=== PATIENT | male | born 1955 | race Caucasian/White ===

== ENCOUNTER 2018-11-03 12:33 | Inpatient (IN) | payer MEDICARE, MEDICAID ==
[~2018-11-03] VITALS: Ht 185.4 cm; Wt 107.9 kg
[2018-11-03 15:37] VITALS: BP 124/80
[2018-11-03] MEDS ORDERED: PLEASE ENTER ALLERGIES MC SCH ×2 (16:57→17:30)
[2018-11-03] MEDS ORDERED: ONDANSETRON ODT 4 MG PO PRN (17:00)
[2018-11-03] MEDS ORDERED: VANCOMYCIN PER PHARMACY MC PRN (17:00)
[2018-11-03] MEDS ORDERED: DOCUSATE 100 MG CAPSULE PO PRN (17:00)
[2018-11-03] MEDS ORDERED: ACETAMINOPHEN 325 MG TABLET PO PRN (17:00)
[2018-11-03] MEDS ORDERED: ONDANSETRON 2MG/ML, 2ML IVPush PRN (17:00)
[2018-11-03] MEDS ORDERED: DIVA-61 PO (17:20)
[2018-11-03] MEDS ORDERED: DULO30CA2 PO (17:20)
[2018-11-03] MEDS ORDERED: INSU100C SQ-INSULIN (17:20)
[2018-11-03] MEDS ORDERED: CARV3.1212 PO (17:20)
[2018-11-03] MEDS ORDERED: ATOR-2 PO (17:20)
[2018-11-03] MEDS ORDERED: RIVA15TA PO (17:20)
[2018-11-03] MEDS ORDERED: INSU100V8 SQ (17:20)
[2018-11-03] MEDS ORDERED: PHARMACOKINETIC MONITORING MC PRN (17:30)
[2018-11-03] MEDS: NICOTINE 7 MG/24 HR PATCH.TD24 TD SCH (18:22)
[2018-11-03] MEDS: HEPARIN 5,000 UNITS/ML, 1ML SQ SCH (18:22)
[2018-11-03] MEDS: PIPERACILLIN/TAZO/PMX 3.375GM 50 ML IV SCH (18:22)
[2018-11-03] MEDS ORDERED: VANCOMYCIN 2,000 MG in SODIUM CHLORIDE 0.9% 500 ML IV ONE (18:30)
[2018-11-03 18:46] LABS: CREATININE 1.05 mg/dL (0.7-1.3)
[2018-11-03] MEDS: INSULIN LISPRO 100 UNITS/ML, PEN SQ-INSULIN SCH ×2 (18:52→21:00)
[2018-11-03] MEDS: OXYcodone IR 5MG TABLET PO PRN (18:58)
[2018-11-03 19:58] VITALS: BP 144/90
[2018-11-03] MEDS: MORPHINE SULFATE 4 MG/ML, 1ML IVPush PRN (23:36)
[2018-11-04] MEDS: OXYcodone IR 5MG TABLET PO PRN ×4 (00:14→19:35)
[2018-11-04] MEDS: PIPERACILLIN/TAZO/PMX 3.375GM 50 ML IV SCH ×5 (00:15→23:29)
[2018-11-04] MEDS: INSULIN GLARGINE 100 UNITS/ML, PEN SQ-INSULIN SCH ×2 (00:55→21:00)
[2018-11-04] MEDS: HEPARIN 5,000 UNITS/ML, 1ML SQ SCH ×2 (01:55→09:12)
[2018-11-04 02:11] VITALS: BP 129/78
[2018-11-04 05:51] LABS: BASOPHILS # (AUTO) 0.07 x10^3/uL (0-0.1); BASOPHILS % (AUTO) 1 % (0-1); EOSINOPHILS # (AUTO) 0.24 x10^3/uL (0-0.4); EOSINOPHILS % (AUTO) 3 % (1-7); LYMPHOCYTES # (AUTO) 2.06 x10^3/uL (1-3.4); LYMPHOCYTES % (AUTO) 26 % (22-44); MD NO; MEAN CORPUSCULAR HEMOGLOBIN 27.7 pg (27.5-34.5); MEAN CORPUSCULAR HGB CONC 33.2 g/dL (33.2-36.2); MEAN CORPUSCULAR VOLUME 83.3 fL (81-97); MEAN PLATELET VOLUME 9.2 fL (7.4-10.4); MONOCYTES # (AUTO) 0.66 x10^3/uL (0.2-0.8); MONOCYTES % (AUTO) 8 % (2-9); NEUTROPHILS % (AUTO) 62 % (42-75); PLATELET COUNT 181 x10^3/uL (130-400); RED BLOOD COUNT 5.33 x10^6/uL (4.38-5.82); RED CELL DISTRIBUTION WIDTH 15.4 % (9.4-14.8)
[2018-11-04 06:02] LABS: ANION GAP 9 mmol/L (5-15); CALCIUM 8.4 mg/dL (8.5-10.1); CHLORIDE 106 mmol/L (98-107)
[2018-11-04 06:16] LABS: ALANINE AMINOTRANSFERASE 98 U/L (12-78); ALKALINE PHOSPHATASE 209 U/L (45-117); BILIRUBIN,TOTAL 1.6 mg/dL (0.2-1.0); CHOL/HDL RATIO 3.3; CHOLESTEROL, TOTAL 83 mg/dL (140-239); CREATININE 0.94 mg/dL (0.7-1.3); HDL CHOL % 30 % (26-37); HDL CHOLESTEROL (DIRECT) 25 mg/dL (40-60); LDL CHOLESTEROL,CALCULATED 44 mg/dL (54-169); LDL/HDL RATIO 1.8 (0.5-3.0); TOTAL PROTEIN 6.4 g/dL (6.4-8.2); TRIGLYCERIDES 70 mg/dL (50-200); VLDL CHOLESTEROL 14 mg/dL (0-25)
[2018-11-04 06:54] LABS: HCT (SEDRATE) 44.5 % (39.2-51.8)
[2018-11-04] MEDS: INSULIN LISPRO 100 UNITS/ML, PEN SQ-INSULIN SCH ×4 (07:00→20:59)
[2018-11-04 07:36] VITALS: BP 128/84
[2018-11-04] MEDS: DULOXETINE 30 MG CAPSULE.DR PO SCH ×2 (09:12→20:59)
[2018-11-04] MEDS: DIVALPROEX 500 MG TAB.ER.24H PO SCH (09:13)
[2018-11-04] MEDS: CARVEDILOL 3.125 MG TABLET PO SCH ×2 (09:13→20:59)
[2018-11-04] MEDS ORDERED: FUROSEMIDE 20 MG/2 ML IV ONE (10:00)
[2018-11-04] MEDS: VANCOMYCIN 2,000 MG in SODIUM CHLORIDE 0.9% 500 ML IV SCH (12:48)
[2018-11-04 13:03] VITALS: BP 134/85
[2018-11-04] MEDS: MORPHINE SULFATE 4 MG/ML, 1ML IVPush PRN ×2 (15:02→23:33)
[2018-11-04] MEDS: RIVAROXABAN 10 MG TABLET PO SCH (17:11)
[2018-11-04] MEDS: NICOTINE 7 MG/24 HR PATCH.TD24 TD SCH (17:11)
[2018-11-04 20:00] VITALS: BP 130/84
[2018-11-04] MEDS: ATORVASTATIN 80 MG TABLET PO SCH (20:59)
[2018-11-04] MEDS ORDERED: TEMPLATE NON-FORMULARY MED. (Rivaroxaban** (Xarelto**) 15 MG) PO SCH (21:00)
[2018-11-05 01:38] VITALS: BP 109/70
[2018-11-05] MEDS: OXYcodone IR 5MG TABLET PO PRN ×3 (03:20→19:31)
[2018-11-05] MEDS: PIPERACILLIN/TAZO/PMX 3.375GM 50 ML IV SCH ×4 (05:33→19:31)
[2018-11-05] MEDS: VANCOMYCIN 2,000 MG in SODIUM CHLORIDE 0.9% 500 ML IV SCH ×2 (06:11→23:38)
[2018-11-05] MEDS: INSULIN LISPRO 100 UNITS/ML, PEN SQ-INSULIN SCH ×4 (07:00→20:30)
[2018-11-05 07:03] VITALS: BP 109/73
[2018-11-05] MEDS: DIVALPROEX 500 MG TAB.ER.24H PO SCH (08:27)
[2018-11-05] MEDS: DULOXETINE 30 MG CAPSULE.DR PO SCH ×2 (08:27→20:32)
[2018-11-05] MEDS: MORPHINE SULFATE 4 MG/ML, 1ML IVPush PRN ×3 (08:28→22:56)
[2018-11-05] MEDS: CARVEDILOL 3.125 MG TABLET PO SCH ×2 (08:28→20:32)
[2018-11-05 14:09] VITALS: BP 128/84
[2018-11-05 15:09] LABS: ALANINE AMINOTRANSFERASE 80 U/L (12-78); ALBUMIN 2.8 g/dL (3.4-5.0); ANION GAP 8 mmol/L (5-15); CALCIUM 8.3 mg/dL (8.5-10.1); CHLORIDE 103 mmol/L (98-107)
[2018-11-05 15:12] LABS: ALKALINE PHOSPHATASE 193 U/L (45-117); BILIRUBIN,TOTAL 1.7 mg/dL (0.2-1.0); CREATININE 1.09 mg/dL (0.7-1.3); TOTAL PROTEIN 6.1 g/dL (6.4-8.2)
[2018-11-05] MEDS: RIVAROXABAN 10 MG TABLET PO SCH (16:29)
[2018-11-05] MEDS: NICOTINE 7 MG/24 HR PATCH.TD24 TD SCH (16:29)
[2018-11-05] MEDS: INSULIN GLARGINE 100 UNITS/ML, PEN SQ-INSULIN SCH (20:31)
[2018-11-05] MEDS: ATORVASTATIN 80 MG TABLET PO SCH (20:32)
[2018-11-05 20:35] VITALS: BP 130/88
[2018-11-06] MEDS: PIPERACILLIN/TAZO/PMX 3.375GM 50 ML IV SCH ×2 (02:00→07:56)
[2018-11-06 03:22] VITALS: BP 141/86
[2018-11-06] MEDS: OXYcodone IR 5MG TABLET PO PRN ×3 (04:25→16:47)
[2018-11-06 05:31] LABS: ALBUMIN 2.9 g/dL (3.4-5.0); ANION GAP 7 mmol/L (5-15); CALCIUM 8.4 mg/dL (8.5-10.1); CHLORIDE 104 mmol/L (98-107)
[2018-11-06 05:36] LABS: ALANINE AMINOTRANSFERASE 85 U/L (12-78); ALKALINE PHOSPHATASE 195 U/L (45-117); CREATININE 0.94 mg/dL (0.7-1.3); TOTAL PROTEIN 6.5 g/dL (6.4-8.2)
[2018-11-06] MEDS: INSULIN LISPRO 100 UNITS/ML, PEN SQ-INSULIN SCH ×4 (06:39→21:01)
[2018-11-06] MEDS: MORPHINE SULFATE 4 MG/ML, 1ML IVPush PRN ×2 (06:44→18:35)
[2018-11-06 07:42] VITALS: BP 142/86
[2018-11-06] MEDS: DULOXETINE 30 MG CAPSULE.DR PO SCH ×2 (07:57→20:59)
[2018-11-06] MEDS: CARVEDILOL 3.125 MG TABLET PO SCH ×2 (07:57→20:59)
[2018-11-06] MEDS: DIVALPROEX 500 MG TAB.ER.24H PO SCH (07:57)
[2018-11-06] MEDS ORDERED: FUROSEMIDE 20 MG TABLET ONE (08:13)
[2018-11-06] MEDS ORDERED: FUROSEMIDE 10 MG/ML ORAL SOL PO SCH (09:00)
[2018-11-06] MEDS ORDERED: FUROSEMIDE 40 MG/4 ML IV ONE (11:00)
[2018-11-06] MEDS ORDERED: CEFAZOLIN 1,000 MG IV SCH (11:00)
[2018-11-06 11:33] VITALS: BP 161/88
[2018-11-06] MEDS: LISINOPRIL 5 MG TABLET PO SCH (11:33)
[2018-11-06] MEDS: CEFAZOLIN PMX 1GM/50ML 50 ML IVPB SCH ×2 (13:56→21:00)
[2018-11-06] MEDS: RIVAROXABAN 10 MG TABLET PO SCH (16:47)
[2018-11-06] MEDS: NICOTINE 7 MG/24 HR PATCH.TD24 TD SCH (16:47)
[2018-11-06 18:56] VITALS: BP 127/71
[2018-11-06] MEDS: ATORVASTATIN 80 MG TABLET PO SCH (20:59)
[2018-11-06] MEDS: INSULIN GLARGINE 100 UNITS/ML, PEN SQ-INSULIN SCH (21:01)
[2018-11-07] MEDS: OXYcodone IR 5MG TABLET PO PRN ×3 (00:06→16:37)
[2018-11-07 02:00] VITALS: BP 129/83
[2018-11-07] MEDS: MORPHINE SULFATE 4 MG/ML, 1ML IVPush PRN ×4 (02:02→19:59)
[2018-11-07] MEDS: CEFAZOLIN PMX 1GM/50ML 50 ML IVPB SCH ×3 (04:22→20:02)
[2018-11-07 05:27] LABS: BASOPHILS # (AUTO) 0.03 x10^3/uL (0-0.1); BASOPHILS % (AUTO) 1 % (0-1); EOSINOPHILS # (AUTO) 0.17 x10^3/uL (0-0.4); EOSINOPHILS % (AUTO) 3 % (1-7); LYMPHOCYTES # (AUTO) 2.21 x10^3/uL (1-3.4); LYMPHOCYTES % (AUTO) 32 % (22-44); MD NO; MEAN CORPUSCULAR HEMOGLOBIN 27.8 pg (27.5-34.5); MEAN CORPUSCULAR HGB CONC 33.1 g/dL (33.2-36.2); MEAN PLATELET VOLUME 9.2 fL (7.4-10.4); MONOCYTES % (AUTO) 7 % (2-9); NEUTROPHILS # (AUTO) 4.03 x10^3/uL (1.8-6.8); NEUTROPHILS % (AUTO) 58 % (42-75); PLATELET COUNT 154 x10^3/uL (130-400); RED BLOOD COUNT 5.22 x10^6/uL (4.38-5.82); RED CELL DISTRIBUTION WIDTH 15.2 % (9.4-14.8)
[2018-11-07 05:28] LABS: ANION GAP 5 mmol/L (5-15); CALCIUM 8.6 mg/dL (8.5-10.1); CHLORIDE 103 mmol/L (98-107)
[2018-11-07 05:32] LABS: ALANINE AMINOTRANSFERASE 81 U/L (12-78); ALKALINE PHOSPHATASE 192 U/L (45-117); BILIRUBIN,TOTAL 1.6 mg/dL (0.2-1.0); CREATININE 1.08 mg/dL (0.7-1.3); TOTAL PROTEIN 6.5 g/dL (6.4-8.2)
[2018-11-07 07:05] VITALS: BP 125/80
[2018-11-07] MEDS: LISINOPRIL 5 MG TABLET PO SCH (08:07)
[2018-11-07] MEDS: DULOXETINE 30 MG CAPSULE.DR PO SCH ×2 (08:07→20:02)
[2018-11-07] MEDS: CARVEDILOL 3.125 MG TABLET PO SCH ×2 (08:07→20:02)
[2018-11-07] MEDS: DIVALPROEX 500 MG TAB.ER.24H PO SCH (08:07)
[2018-11-07] MEDS: INSULIN LISPRO 100 UNITS/ML, PEN SQ-INSULIN SCH ×4 (08:13→20:00)
[2018-11-07 14:21] VITALS: BP 111/74
[2018-11-07] MEDS: RIVAROXABAN 10 MG TABLET PO SCH (16:37)
[2018-11-07] MEDS: NICOTINE 7 MG/24 HR PATCH.TD24 TD SCH (16:37)
[2018-11-07 19:52] VITALS: BP 122/74
[2018-11-07] MEDS: INSULIN GLARGINE 100 UNITS/ML, PEN SQ-INSULIN SCH (20:00)
[2018-11-07] MEDS: FUROSEMIDE 40 MG TABLET PO SCH (20:02)
[2018-11-07] MEDS: ATORVASTATIN 80 MG TABLET PO SCH (20:02)
[2018-11-08 00:36] VITALS: BP 120/85
[2018-11-08] MEDS: MORPHINE SULFATE 4 MG/ML, 1ML IVPush PRN ×3 (04:28→20:56)
[2018-11-08] MEDS: CEFAZOLIN PMX 1GM/50ML 50 ML IVPB SCH ×3 (04:28→20:54)
[2018-11-08 05:51] LABS: ALANINE AMINOTRANSFERASE 77 U/L (12-78); ALBUMIN 3.1 g/dL (3.4-5.0); ANION GAP 7 mmol/L (5-15); CALCIUM 8.2 mg/dL (8.5-10.1); CHLORIDE 103 mmol/L (98-107); CREATININE 1.13 mg/dL (0.7-1.3)
[2018-11-08 05:54] LABS: ALKALINE PHOSPHATASE 195 U/L (45-117); BILIRUBIN,TOTAL 1.4 mg/dL (0.2-1.0); TOTAL PROTEIN 6.5 g/dL (6.4-8.2)
[2018-11-08] MEDS: INSULIN LISPRO 100 UNITS/ML, PEN SQ-INSULIN SCH ×4 (07:00→20:56)
[2018-11-08 07:50] VITALS: BP 115/76
[2018-11-08] MEDS: DULOXETINE 30 MG CAPSULE.DR PO SCH ×2 (08:59→20:54)
[2018-11-08] MEDS: DIVALPROEX 500 MG TAB.ER.24H PO SCH (08:59)
[2018-11-08] MEDS: CARVEDILOL 3.125 MG TABLET PO SCH (08:59)
[2018-11-08] MEDS: LISINOPRIL 5 MG TABLET PO SCH (09:00)
[2018-11-08] MEDS: FUROSEMIDE 40 MG TABLET PO SCH ×2 (09:00→20:56)
[2018-11-08] MEDS: ACETAMINOPHEN 325 MG TABLET PO SCH ×3 (10:43→23:01)
[2018-11-08 14:00] VITALS: BP 137/81
[2018-11-08] MEDS: OXYcodone IR 5MG TABLET PO PRN ×2 (15:09→23:01)
[2018-11-08] MEDS: NICOTINE 7 MG/24 HR PATCH.TD24 TD SCH (16:42)
[2018-11-08] MEDS: RIVAROXABAN 10 MG TABLET PO SCH (16:42)
[2018-11-08 18:56] VITALS: BP 123/72
[2018-11-08] MEDS: CARVEDILOL 6.25 MG TABLET PO SCH (20:54)
[2018-11-08] MEDS: ATORVASTATIN 80 MG TABLET PO SCH (20:54)
[2018-11-08] MEDS: INSULIN GLARGINE 100 UNITS/ML, PEN SQ-INSULIN SCH (20:56)
[2018-11-09 01:22] VITALS: BP 103/67
[2018-11-09] MEDS: MORPHINE SULFATE 4 MG/ML, 1ML IVPush PRN ×4 (03:11→20:32)
[2018-11-09] MEDS: ACETAMINOPHEN 325 MG TABLET PO SCH ×4 (04:49→22:41)
[2018-11-09] MEDS: CEFAZOLIN PMX 1GM/50ML 50 ML IVPB SCH ×3 (04:49→20:30)
[2018-11-09 07:21] VITALS: BP 112/72
[2018-11-09] MEDS: INSULIN LISPRO 100 UNITS/ML, PEN SQ-INSULIN SCH ×4 (08:48→20:31)
[2018-11-09] MEDS: LISINOPRIL 5 MG TABLET PO SCH (08:59)
[2018-11-09] MEDS: DIVALPROEX 500 MG TAB.ER.24H PO SCH (08:59)
[2018-11-09] MEDS: FUROSEMIDE 40 MG TABLET PO SCH ×2 (09:00→20:30)
[2018-11-09] MEDS: CARVEDILOL 6.25 MG TABLET PO SCH ×2 (09:00→20:30)
[2018-11-09] MEDS: DULOXETINE 30 MG CAPSULE.DR PO SCH ×2 (09:02→20:30)
[2018-11-09] MEDS: OXYcodone IR 5MG TABLET PO PRN ×3 (09:43→23:45)
[2018-11-09 12:05] VITALS: BP 115/79
[2018-11-09] MEDS: RIVAROXABAN 10 MG TABLET PO SCH (16:35)
[2018-11-09] MEDS: NICOTINE 7 MG/24 HR PATCH.TD24 TD SCH (16:37)
[2018-11-09 19:21] VITALS: BP 111/75
[2018-11-09] MEDS: ATORVASTATIN 80 MG TABLET PO SCH (20:30)
[2018-11-09] MEDS: INSULIN GLARGINE 100 UNITS/ML, PEN SQ-INSULIN SCH (20:32)
[2018-11-10 00:22] VITALS: BP 113/73
[2018-11-10] MEDS: ACETAMINOPHEN 325 MG TABLET PO SCH ×2 (04:07→09:44)
[2018-11-10] MEDS: CEFAZOLIN PMX 1GM/50ML 50 ML IVPB SCH (04:07)
[2018-11-10] MEDS: OXYcodone IR 5MG TABLET PO PRN (05:59)
[2018-11-10 06:45] VITALS: BP 109/72
[2018-11-10] MEDS: INSULIN LISPRO 100 UNITS/ML, PEN SQ-INSULIN SCH ×2 (07:47→11:58)
[2018-11-10] MEDS ORDERED: AMOXICILLIN/CLAV 875-125MG TABLET PO SCH (08:00)
[2018-11-10] MEDS ORDERED: CARVEDILOL 12.5 MG TABLET PO SCH (09:00)
[2018-11-10] MEDS ORDERED: FUROSEMIDE 20 MG TABLET PO SCH (09:00)
[2018-11-10] MEDS: MORPHINE SULFATE 4 MG/ML, 1ML IVPush PRN (09:44)
[2018-11-10] MEDS: DULOXETINE 30 MG CAPSULE.DR PO SCH (09:44)
[2018-11-10] MEDS: DIVALPROEX 500 MG TAB.ER.24H PO SCH (09:44)
[2018-11-10] MEDS: LISINOPRIL 5 MG TABLET PO SCH (09:44)
[2018-11-10] MEDS ORDERED: FURO20TA3 PO (10:12)
[2018-11-10] MEDS ORDERED: CARV12.543 PO (10:12)
[2018-11-10] MEDS ORDERED: AMOX1TAB12 PO (10:12)
[2018-11-10] MEDS ORDERED: LISI5TAB7 PO (10:12)
[2018-11-10] MEDS ORDERED: SPIR25TA5 PO (12:06)
== END 2018-11-10 14:42 | disposition home or self-care (01) | DRG 564 ==
LOC: 4NOR 15:04 → 4EST 11-06 12:13 → 4WST 11-06 20:31 → DCLOUNGE 11-10 14:22
PROVIDERS: ADMIT Internal Medicine; ATTEND Internal Medicine
DX: T87.43 Infection of amputation stump, right lower extremity (principal); I50.21 Acute systolic (congestive) heart failure; L03.115 Cellulitis of right lower limb; I35.0 Nonrheumatic aortic (valve) stenosis; Y83.8 Other surgical procedures as the cause of abnormal reaction of the patient, or of later complication, without mention of misadventure at the time of the procedure; K74.60 Unspecified cirrhosis of liver; B19.20 Unspecified viral hepatitis C without hepatic coma; E66.9 Obesity, unspecified; G89.4 Chronic pain syndrome; I11.0 Hypertensive heart disease with heart failure; F32.9 Major depressive disorder, single episode, unspecified; E11.40 Type 2 diabetes mellitus with diabetic neuropathy, unspecified; E11.51 Type 2 diabetes mellitus with diabetic peripheral angiopathy without gangrene; E11.65 Type 2 diabetes mellitus with hyperglycemia; E78.5 Hyperlipidemia, unspecified; F17.210 Nicotine dependence, cigarettes, uncomplicated; L03.011 Cellulitis of right finger; Y83.5 Amputation of limb(s) as the cause of abnormal reaction of the patient, or of later complication, without mention of misadventure at the time of the procedure; Z79.01 Long term (current) use of anticoagulants; Z89.511 Acquired absence of right leg below knee; Z89.612 Acquired absence of left leg above knee; Z86.718 Personal history of other venous thrombosis and embolism; Z79.4 Long term (current) use of insulin; Z82.49 Family history of ischemic heart disease and other diseases of the circulatory system; Z83.3 Family history of diabetes mellitus; Z86.79 Personal history of other diseases of the circulatory system
CPT/HCPCS: 36415; 71045; 76700; 80053; 80061; 80074; 82565; 82962; 83036; 83880; 84443; 84520; 85025; 85651; 86140; 87521; 93306; G0378; J0690; J1644; J1940; J2405; J2543; J3370; J1815; J7040

== ENCOUNTER 2020-04-29 02:25 | Inpatient (IN) | payer MEDICARE, MEDICAID ==
[~2020-04-29] VITALS: Ht 185.4 cm; Wt 109.0 kg
[~2020-04-29 02:25] MED LIST: AMOX1TAB12 PO; ATOR-2 PO; CARV12.543 PO; CARV3.1212 PO; DIVA-61 PO; DULO30CA2 PO; FURO20TA3 PO; INSU100C SQ-INSULIN; INSU100V8 SQ; LISI5TAB7 PO; RIVA15TA PO; SPIR25TA5 PO
--- NOTE | 2020-04-29 02:47 | NUR ---
THIS IS A 65Y M ROMAN BARBA PT PRESENTED THERE W/ INC R LOWER EXTREM PAIN X2 DAYS. PT HAS KNOWN INFECTION IN STUMP AND HAS WOUND VAC. US FOUND OCCULSION OF FEMORAL ARTERY WITH MINIMAL BLOOD FLOW. PT ARRIVES IN STABLE CONDITION ON 2 L NC, VSS, PT CONNECTED TO ALL MONITORING.
--- NOTE | 2020-04-29 02:55 | NUR ---
LAB AT BEDSIDE FOR DRAW
--- NOTE | 2020-04-29 02:55 | NUR ---
PT OFFERED PAIN MEDICATION, PT STS HE WANTS TO HOLD OFF A LITTLE LONGER HE HAD SOME ON THE FLIGHT OVER
[2020-04-29] MEDS ORDERED: SODIUM CHLORIDE FLUSH 10ML SYR IVF ONE (03:00)
[2020-04-29] MEDS ORDERED: SODIUM CHLORIDE 0.9% 1,000 ML IV ONE (03:09)
[2020-04-29 03:14] LABS: BASOPHILS # (AUTO) 0.05 x10^3/uL (0-0.1); BASOPHILS % (AUTO) 1 % (0-1); EOSINOPHILS # (AUTO) 0.23 x10^3/uL (0-0.4); EOSINOPHILS % (AUTO) 3 % (1-7); LYMPHOCYTES # (AUTO) 1.59 x10^3/uL (1-3.4); LYMPHOCYTES % (AUTO) 18 % (22-44); MD NO; MEAN CORPUSCULAR HEMOGLOBIN 27.1 pg (27.5-34.5); MEAN CORPUSCULAR HGB CONC 32.2 g/dL (33.2-36.2); MEAN CORPUSCULAR VOLUME 84.1 fL (81-97); MEAN PLATELET VOLUME 8.8 fL (7.4-10.4); MONOCYTES # (AUTO) 0.62 x10^3/uL (0.2-0.8); MONOCYTES % (AUTO) 7 % (2-9); NEUTROPHILS # (AUTO) 6.38 x10^3/uL (1.8-6.8); NEUTROPHILS % (AUTO) 72 % (42-75); PLATELET COUNT 153 x10^3/uL (130-400); RED CELL DISTRIBUTION WIDTH 17.4 % (9.4-14.8)
[2020-04-29 03:21] LABS: INTERNATIONAL NORMALIZED RATIO 3.11 (0.93-1.1); PROTHROMBIN TIME 33.3 Seconds (9.6-11.5)
[2020-04-29 03:24] LABS: ALANINE AMINOTRANSFERASE 87 U/L (12-78); ALBUMIN 2.9 g/dL (3.4-5.0); ANION GAP 4 mmol/L (5-15); CALCIUM 8.5 mg/dL (8.5-10.1); CHLORIDE 103 mmol/L (98-107); CREATININE 0.89 mg/dL (0.7-1.3)
--- NOTE | 2020-04-29 03:25 | NUR ---
LAB AT BEDSIDE FOR SECOND SET OF CULTURES PRIOR TO ABX
[2020-04-29 03:26] LABS: ALKALINE PHOSPHATASE 320 U/L (45-117); BILIRUBIN,TOTAL 1.2 mg/dL (0.2-1.0); TOTAL PROTEIN 7.3 g/dL (6.4-8.2)
[2020-04-29] MEDS ORDERED: VANCOMYCIN 2,500 MG in SODIUM CHLORIDE 0.9% 500 ML IV ONE (03:30)
[2020-04-29] MEDS ORDERED: VANCOMYCIN PER PHARMACY MC ONE (03:30)
[2020-04-29] MEDS ORDERED: AMPICILLIN/SULBACTAM 3 GM in SODIUM CHLORIDE 0.9% 100 ML IV ONE (03:30)
--- NOTE | 2020-04-29 03:38 | NUR ---
LAB UNABLE TO OBTAIN 2ND SET OF CULTURES, SENDING ANOTHER CORPORATE SERVICES MANAGER AT THIS TIME
[2020-04-29] MEDS ORDERED: MORPHINE SULFATE 4 MG/ML, 1ML ONE ×2 (03:41→05:37)
[2020-04-29] MEDS: MORPHINE SULFATE 4 MG/ML, 1ML IVPush PRN ×2 (03:44→05:41)
--- NOTE | 2020-04-29 03:45 | NUR ---
2ND SET OF CULTURES COLLECTED, PT MEDICATED FOR PAIN PER MAR AT THIS TIME, IV ABX STARTED NADN
--- NOTE | 2020-04-29 04:12 | NUR ---
SPOKE WITH RN FROM SNF IN [place], RN STS SHE GAVE PT HIS NIGHT MEDS PRIOR TO HIM GOING TO [facility]
[2020-04-29] MEDS ORDERED: DOCUSATE 100 MG CAPSULE PO PRN (04:30)
[2020-04-29] MEDS ORDERED: IBUPROFEN 600 MG TABLET PO PRN (04:30)
[2020-04-29] MEDS ORDERED: VANCOMYCIN PER PHARMACY MC PRN (04:30)
[2020-04-29] MEDS ORDERED: hydrALAzine 20 MG/ML, 1ML IVPush PRN (04:30)
[2020-04-29] MEDS ORDERED: ONDANSETRON 2MG/ML, 2ML IVPush PRN (04:30)
--- NOTE | 2020-04-29 04:30 | NUR ---
VANCO STARTED PER PHARMACY, INFUSING W/OUT DIFFICULTY. PT RESTING ON [facility] AT BEDSIDE TO ADMIT PT, PT ALSO PROVIDED WITH WATER REQ.
--- NOTE | 2020-04-29 05:35 | NUR ---
REPORT TO RENÉ CASTRO ALL QUESTIONS ADDRESSED PT READY FOR TRANSPORT TO ROOM 360 AT THIS TIME
[2020-04-29 05:58] LABS: HCT (SEDRATE) 43.6 % (39.2-51.8)
[2020-04-29 06:15] VITALS: BP 115/75
[2020-04-29] MEDS ORDERED: PHARMACOKINETIC MONITORING MC PRN (06:30)
[2020-04-29] MEDS ORDERED: PHARMACOKINETIC CONSULTATION MC ONE (06:30)
[2020-04-29] MEDS: INSULIN LISPRO 100 UNITS/ML, PEN SQ-INSULIN SCH ×4 (07:00→20:04)
[2020-04-29] MEDS: morphine SULFATE 10 MG/ML, 1ML IVPush PRN ×5 (07:26→23:52)
[2020-04-29] MEDS: CARVEDILOL 12.5 MG TABLET PO SCH ×2 (07:26→20:05)
[2020-04-29] MEDS: LISINOPRIL 5 MG TABLET PO SCH (07:27)
[2020-04-29] MEDS: SPIRONOLACTONE 25 MG TABLET PO SCH (07:27)
[2020-04-29] MEDS: DULOXETINE 30 MG CAPSULE.DR PO SCH ×2 (07:27→20:04)
[2020-04-29] MEDS: FUROSEMIDE 20 MG TABLET PO SCH (07:27)
[2020-04-29 07:32] VITALS: BP 119/82
[2020-04-29] MEDS: PIPERACILLIN/TAZO/PMX 3.375GM 50 ML IV SCH ×3 (09:30→22:25)
[2020-04-29] MEDS: INSULIN GLARGINE 100 UNITS/ML, PEN SQ-INSULIN SCH (09:38)
[2020-04-29] MEDS: KETOROLAC 30 MG/1 ML IM PRN (10:13)
[2020-04-29 12:46] VITALS: BP 104/69
[2020-04-29 19:43] VITALS: BP 123/85
[2020-04-29] MEDS: ATORVASTATIN 80 MG TABLET PO SCH (20:05)
[2020-04-29] MEDS: DIVALPROEX 500 MG TABLET.DR PO SCH (20:05)
[2020-04-29] MEDS: VANCOMYCIN 1,900 MG in SODIUM CHLORIDE 0.9% 250 ML IV SCH (23:12)
[2020-04-30 00:17] VITALS: BP 101/68
[2020-04-30] MEDS: PIPERACILLIN/TAZO/PMX 3.375GM 50 ML IV SCH ×4 (04:19→22:28)
[2020-04-30] MEDS: morphine SULFATE 10 MG/ML, 1ML IVPush PRN ×5 (05:00→20:45)
[2020-04-30 05:25] LABS: ANION GAP 7 mmol/L (5-15); CALCIUM 8.5 mg/dL (8.5-10.1); CHLORIDE 104 mmol/L (98-107); CREATININE 1.11 mg/dL (0.7-1.3)
[2020-04-30 05:30] LABS: BASOPHILS # (AUTO) 0.03 x10^3/uL (0-0.1); BASOPHILS % (AUTO) 1 % (0-1); EOSINOPHILS # (AUTO) 0.26 x10^3/uL (0-0.4); EOSINOPHILS % (AUTO) 5 % (1-7); LYMPHOCYTES # (AUTO) 1.03 x10^3/uL (1-3.4); LYMPHOCYTES % (AUTO) 20 % (22-44); MD NO; MEAN CORPUSCULAR HEMOGLOBIN 27.2 pg (27.5-34.5); MEAN CORPUSCULAR HGB CONC 32.4 g/dL (33.2-36.2); MEAN CORPUSCULAR VOLUME 83.9 fL (81-97); MEAN PLATELET VOLUME 9.2 fL (7.4-10.4); MONOCYTES # (AUTO) 0.38 x10^3/uL (0.2-0.8); MONOCYTES % (AUTO) 7 % (2-9); NEUTROPHILS # (AUTO) 3.42 x10^3/uL (1.8-6.8); NEUTROPHILS % (AUTO) 67 % (42-75); PLATELET COUNT 116 x10^3/uL (130-400); RED BLOOD COUNT 4.84 x10^6/uL (4.38-5.82); RED CELL DISTRIBUTION WIDTH 17.3 % (9.4-14.8)
[2020-04-30 06:58] VITALS: BP 108/72
[2020-04-30] MEDS: INSULIN LISPRO 100 UNITS/ML, PEN SQ-INSULIN SCH ×4 (07:00→20:51)
[2020-04-30] MEDS: FUROSEMIDE 20 MG TABLET PO SCH (08:05)
[2020-04-30] MEDS: DULOXETINE 30 MG CAPSULE.DR PO SCH ×2 (08:05→20:48)
[2020-04-30] MEDS: CARVEDILOL 12.5 MG TABLET PO SCH ×2 (08:06→20:47)
[2020-04-30] MEDS: SPIRONOLACTONE 25 MG TABLET PO SCH (08:06)
[2020-04-30] MEDS: LISINOPRIL 5 MG TABLET PO SCH (08:07)
[2020-04-30 08:10] VITALS: BP 147/78
[2020-04-30] MEDS: INSULIN GLARGINE 100 UNITS/ML, PEN SQ-INSULIN SCH (09:00)
[2020-04-30 13:44] LABS: INTERNATIONAL NORMALIZED RATIO 3.78 (0.93-1.1); PROTHROMBIN TIME 40.6 Seconds (9.6-11.5)
[2020-04-30 14:47] VITALS: BP 102/65
[2020-04-30] MEDS: VANCOMYCIN 1,900 MG in SODIUM CHLORIDE 0.9% 250 ML IV SCH (16:53)
[2020-04-30 18:44] VITALS: BP 109/73
[2020-04-30] MEDS: DIVALPROEX 500 MG TABLET.DR PO SCH (20:47)
[2020-04-30] MEDS: ATORVASTATIN 80 MG TABLET PO SCH (20:48)
[2020-05-01 00:14] VITALS: BP 111/75
[2020-05-01] MEDS: morphine SULFATE 10 MG/ML, 1ML IVPush PRN ×8 (00:27→22:38)
[2020-05-01] MEDS: PIPERACILLIN/TAZO/PMX 3.375GM 50 ML IV SCH ×4 (04:20→22:37)
[2020-05-01] MEDS: INSULIN LISPRO 100 UNITS/ML, PEN SQ-INSULIN SCH ×4 (07:00→20:39)
[2020-05-01 07:09] VITALS: BP 103/70
[2020-05-01 07:31] LABS: BASOPHILS # (AUTO) 0.03 x10^3/uL (0-0.1); BASOPHILS % (AUTO) 1 % (0-1); EOSINOPHILS # (AUTO) 0.18 x10^3/uL (0-0.4); EOSINOPHILS % (AUTO) 4 % (1-7); LYMPHOCYTES # (AUTO) 0.96 x10^3/uL (1-3.4); LYMPHOCYTES % (AUTO) 22 % (22-44); MD NO; MEAN CORPUSCULAR HEMOGLOBIN 27.1 pg (27.5-34.5); MEAN CORPUSCULAR VOLUME 84.6 fL (81-97); MEAN PLATELET VOLUME 9.3 fL (7.4-10.4); MONOCYTES # (AUTO) 0.34 x10^3/uL (0.2-0.8); MONOCYTES % (AUTO) 8 % (2-9); NEUTROPHILS # (AUTO) 2.82 x10^3/uL (1.8-6.8); NEUTROPHILS % (AUTO) 65 % (42-75); PLATELET COUNT 105 x10^3/uL (130-400); RED BLOOD COUNT 4.89 x10^6/uL (4.38-5.82); RED CELL DISTRIBUTION WIDTH 17.4 % (9.4-14.8)
[2020-05-01] MEDS: CARVEDILOL 12.5 MG TABLET PO SCH ×2 (07:38→20:39)
[2020-05-01] MEDS: FUROSEMIDE 20 MG TABLET PO SCH (07:41)
[2020-05-01] MEDS: DULOXETINE 30 MG CAPSULE.DR PO SCH ×2 (07:41→20:38)
[2020-05-01] MEDS: SPIRONOLACTONE 25 MG TABLET PO SCH (07:41)
[2020-05-01] MEDS: LISINOPRIL 5 MG TABLET PO SCH (07:41)
[2020-05-01 07:42] VITALS: BP 176/76
[2020-05-01 07:43] LABS: ALBUMIN 2.6 g/dL (3.4-5.0); ANION GAP 7 mmol/L (5-15); CALCIUM 8.4 mg/dL (8.5-10.1); CHLORIDE 101 mmol/L (98-107); CREATININE 0.95 mg/dL (0.7-1.3)
[2020-05-01] MEDS: INSULIN GLARGINE 100 UNITS/ML, PEN SQ-INSULIN SCH (08:59)
[2020-05-01] MEDS: KETOROLAC 30 MG/1 ML IM PRN ×2 (10:15→20:39)
[2020-05-01] MEDS: VANCOMYCIN 1,900 MG in SODIUM CHLORIDE 0.9% 250 ML IV SCH (11:40)
[2020-05-01 12:42] VITALS: BP 103/67
[2020-05-01 20:20] VITALS: BP 95/60
[2020-05-01] MEDS: ATORVASTATIN 80 MG TABLET PO SCH (20:38)
[2020-05-01] MEDS: ACETAMINOPHEN 325 MG TABLET PO PRN (20:38)
[2020-05-01] MEDS: DIVALPROEX 500 MG TABLET.DR PO SCH (20:39)
[2020-05-02 01:29] VITALS: BP 112/55
[2020-05-02] MEDS: morphine SULFATE 10 MG/ML, 1ML IVPush PRN ×7 (01:44→23:02)
[2020-05-02] MEDS: PIPERACILLIN/TAZO/PMX 3.375GM 50 ML IV SCH ×4 (04:06→23:44)
[2020-05-02] MEDS: INSULIN LISPRO 100 UNITS/ML, PEN SQ-INSULIN SCH ×4 (07:35→21:00)
[2020-05-02] MEDS: SPIRONOLACTONE 25 MG TABLET PO SCH (08:01)
[2020-05-02] MEDS: DULOXETINE 30 MG CAPSULE.DR PO SCH ×2 (08:01→19:35)
[2020-05-02] MEDS: LISINOPRIL 5 MG TABLET PO SCH (08:01)
[2020-05-02] MEDS: FUROSEMIDE 20 MG TABLET PO SCH (08:01)
[2020-05-02] MEDS: CARVEDILOL 12.5 MG TABLET PO SCH ×2 (08:02→19:35)
[2020-05-02] MEDS: INSULIN GLARGINE 100 UNITS/ML, PEN SQ-INSULIN SCH (08:03)
[2020-05-02 08:16] VITALS: BP 100/59
[2020-05-02 13:26] VITALS: BP 107/72
[2020-05-02] MEDS: ACETAMINOPHEN 325 MG TABLET PO PRN (15:22)
[2020-05-02] MEDS: KETOROLAC 30 MG/1 ML IM PRN (15:22)
[2020-05-02] MEDS: VANCOMYCIN 1,900 MG in SODIUM CHLORIDE 0.9% 250 ML IV SCH (16:27)
[2020-05-02 19:21] VITALS: BP 99/67
[2020-05-02] MEDS: DIVALPROEX 500 MG TABLET.DR PO SCH (19:35)
[2020-05-02] MEDS: ATORVASTATIN 80 MG TABLET PO SCH (19:35)
[2020-05-03 00:17] VITALS: BP 96/65
[2020-05-03] MEDS: morphine SULFATE 10 MG/ML, 1ML IVPush PRN ×7 (02:30→23:44)
[2020-05-03] MEDS: PIPERACILLIN/TAZO/PMX 3.375GM 50 ML IV SCH ×3 (05:34→20:55)
[2020-05-03] MEDS: INSULIN LISPRO 100 UNITS/ML, PEN SQ-INSULIN SCH ×4 (07:00→21:17)
[2020-05-03 07:45] VITALS: BP 103/70
[2020-05-03 09:04] VITALS: BP 101/68
[2020-05-03] MEDS: CARVEDILOL 12.5 MG TABLET PO SCH ×2 (09:06→19:54)
[2020-05-03] MEDS: FUROSEMIDE 20 MG TABLET PO SCH (09:06)
[2020-05-03] MEDS: SPIRONOLACTONE 25 MG TABLET PO SCH (09:06)
[2020-05-03] MEDS: DULOXETINE 30 MG CAPSULE.DR PO SCH ×2 (09:06→19:54)
[2020-05-03] MEDS: LISINOPRIL 5 MG TABLET PO SCH (09:06)
[2020-05-03] MEDS: INSULIN GLARGINE 100 UNITS/ML, PEN SQ-INSULIN SCH (09:07)
[2020-05-03 12:46] VITALS: BP 118/80
[2020-05-03] MEDS: VANCOMYCIN 1,900 MG in SODIUM CHLORIDE 0.9% 250 ML IV SCH (13:27)
[2020-05-03] MEDS: KETOROLAC 30 MG/1 ML IVPush PRN ×2 (16:38→22:42)
[2020-05-03 19:15] VITALS: BP 117/78
[2020-05-03] MEDS: DIVALPROEX 500 MG TABLET.DR PO SCH (19:54)
[2020-05-03] MEDS: ATORVASTATIN 80 MG TABLET PO SCH (19:54)
[2020-05-04 00:12] VITALS: BP 125/77
[2020-05-04] MEDS: PIPERACILLIN/TAZO/PMX 3.375GM 50 ML IV SCH ×2 (02:47→09:17)
[2020-05-04] MEDS: morphine SULFATE 10 MG/ML, 1ML IVPush PRN ×2 (02:47→09:18)
[2020-05-04] MEDS: KETOROLAC 30 MG/1 ML IVPush PRN ×2 (06:38→13:43)
[2020-05-04 06:56] VITALS: BP 126/79
[2020-05-04] MEDS: INSULIN LISPRO 100 UNITS/ML, PEN SQ-INSULIN SCH ×4 (07:00→21:58)
[2020-05-04] MEDS: VANCOMYCIN 1,900 MG in SODIUM CHLORIDE 0.9% 250 ML IV SCH (08:17)
[2020-05-04] MEDS: SPIRONOLACTONE 25 MG TABLET PO SCH (09:18)
[2020-05-04] MEDS: DULOXETINE 30 MG CAPSULE.DR PO SCH ×2 (09:18→21:58)
[2020-05-04] MEDS: LISINOPRIL 5 MG TABLET PO SCH (09:18)
[2020-05-04] MEDS: FUROSEMIDE 20 MG TABLET PO SCH (09:18)
[2020-05-04] MEDS: CARVEDILOL 12.5 MG TABLET PO SCH (09:18)
[2020-05-04] MEDS: INSULIN GLARGINE 100 UNITS/ML, PEN SQ-INSULIN SCH (09:19)
[2020-05-04] MEDS: AMPICILLIN/SULBACTAM 1,500 MG in SODIUM CHLORIDE 0.9% 50 ML IV SCH ×2 (12:42→18:06)
[2020-05-04 13:01] LABS: INTERNATIONAL NORMALIZED RATIO 1.38 (0.93-1.1); PROTHROMBIN TIME 14.7 Seconds (9.6-11.5)
[2020-05-04 13:10] LABS: TROPONIN I 0.025 ng/mL (0.000-0.045)
[2020-05-04] MEDS ORDERED: LIDOCAINE 1%, 10ML ONE (14:02)
[2020-05-04 15:04] VITALS: BP 108/71
[2020-05-04] MEDS: OXYcodone/APAP 5/325MG TABLET PO PRN ×2 (15:21→22:25)
[2020-05-04 16:28] LABS: TROPONIN I 0.023 ng/mL (0.000-0.045)
[2020-05-04] MEDS: FUROSEMIDE 40 MG/4 ML IV SCH (18:06)
[2020-05-04 20:58] LABS: TROPONIN I 0.023 ng/mL (0.000-0.045)
[2020-05-04 21:50] VITALS: BP 116/74
[2020-05-04] MEDS: ATORVASTATIN 80 MG TABLET PO SCH (21:58)
[2020-05-04] MEDS: DIVALPROEX 500 MG TABLET.DR PO SCH (21:59)
[2020-05-04] MEDS: CARVEDILOL 6.25 MG TABLET PO SCH (21:59)
[2020-05-04] MEDS ORDERED: WARFARIN 7.5 MG TABLET PO-COUM ONE (22:00)
[2020-05-05] MEDS: AMPICILLIN/SULBACTAM 1,500 MG in SODIUM CHLORIDE 0.9% 50 ML IV SCH ×4 (00:06→18:18)
[2020-05-05 00:15] VITALS: BP 117/68
[2020-05-05] MEDS: KETOROLAC 30 MG/1 ML IVPush PRN (03:56)
[2020-05-05] MEDS: OXYcodone/APAP 5/325MG TABLET PO PRN ×3 (05:34→22:25)
[2020-05-05] MEDS: INSULIN LISPRO 100 UNITS/ML, PEN SQ-INSULIN SCH ×4 (07:00→22:26)
[2020-05-05 07:20] VITALS: BP 100/58
[2020-05-05] MEDS: FUROSEMIDE 40 MG/4 ML IV SCH ×2 (07:40→17:12)
[2020-05-05] MEDS ORDERED: HEPARIN 5,000 UNITS/ML, 1ML IV ONE (09:30)
[2020-05-05] MEDS: DULOXETINE 30 MG CAPSULE.DR PO SCH ×2 (09:31→22:24)
[2020-05-05] MEDS: INSULIN GLARGINE 100 UNITS/ML, PEN SQ-INSULIN SCH (09:31)
[2020-05-05] MEDS: CARVEDILOL 6.25 MG TABLET PO SCH ×2 (09:31→22:24)
[2020-05-05] MEDS: HEPARIN 25,000 UNITS/250ML PMX 250 ML IV PRN (11:13)
[2020-05-05 11:25] LABS: INTERNATIONAL NORMALIZED RATIO 1.3 (0.93-1.1); PROTHROMBIN TIME 13.8 Seconds (9.6-11.5)
[2020-05-05 13:49] VITALS: BP 111/67
[2020-05-05] MEDS: GABAPENTIN 100 MG CAPSULE PO SCH ×2 (17:12→22:24)
[2020-05-05] MEDS ORDERED: WARFARIN 7.5 MG TABLET PO-COUM ONE (18:00)
[2020-05-05] MEDS: HEPARIN 5,000 UNITS/ML, 1ML IV PRN (18:19)
[2020-05-05 19:26] VITALS: BP 132/63
[2020-05-05] MEDS: ATORVASTATIN 80 MG TABLET PO SCH (22:24)
[2020-05-05] MEDS: DIVALPROEX 500 MG TABLET.DR PO SCH (22:24)
[2020-05-06] MEDS: AMPICILLIN/SULBACTAM 1,500 MG in SODIUM CHLORIDE 0.9% 50 ML IV SCH ×5 (00:21→22:49)
[2020-05-06 00:25] VITALS: BP 132/80
[2020-05-06] MEDS: HEPARIN 5,000 UNITS/ML, 1ML IV PRN ×2 (01:37→14:58)
[2020-05-06 06:43] LABS: INTERNATIONAL NORMALIZED RATIO 2.44 (0.93-1.1); PROTHROMBIN TIME 26.1 Seconds (9.6-11.5)
[2020-05-06 07:05] VITALS: BP 105/63
[2020-05-06] MEDS: INSULIN GLARGINE 100 UNITS/ML, PEN SQ-INSULIN SCH (07:59)
[2020-05-06] MEDS: GABAPENTIN 100 MG CAPSULE PO SCH (08:00)
[2020-05-06] MEDS: INSULIN LISPRO 100 UNITS/ML, PEN SQ-INSULIN SCH ×4 (08:00→19:49)
[2020-05-06] MEDS: CARVEDILOL 6.25 MG TABLET PO SCH (08:00)
[2020-05-06] MEDS: FUROSEMIDE 40 MG/4 ML IV SCH ×2 (08:00→17:16)
[2020-05-06] MEDS: DULOXETINE 30 MG CAPSULE.DR PO SCH ×2 (08:00→19:45)
[2020-05-06] MEDS: HEPARIN 25,000 UNITS/250ML PMX 250 ML IV PRN (08:45)
[2020-05-06] MEDS: LISINOPRIL 5 MG TABLET PO SCH (09:37)
[2020-05-06] MEDS ORDERED: CARVEDILOL 6.25 MG TABLET PO ONE (13:30)
[2020-05-06] MEDS: GABAPENTIN 300 MG CAPSULE PO SCH ×2 (14:57→19:45)
[2020-05-06 15:00] VITALS: BP 138/72
[2020-05-06] MEDS ORDERED: WARFARIN 1 MG TABLET PO-COUM ONE (18:00)
[2020-05-06] MEDS: ATORVASTATIN 80 MG TABLET PO SCH (19:45)
[2020-05-06] MEDS: CARVEDILOL 12.5 MG TABLET PO SCH (19:46)
[2020-05-06] MEDS: DIVALPROEX 500 MG TABLET.DR PO SCH (19:46)
[2020-05-06 19:54] VITALS: BP 139/78
[2020-05-06 22:13] LABS: FREE T4 (FREE THYROXINE) 1.22 ng/dL (0.76-1.46)
[2020-05-06] MEDS ORDERED: MAGNESIUM SULFATE PMX 4GM/100M 100 ML IV ONE (22:30)
[2020-05-06] MEDS: CYCLOBENZAPRINE 10 MG TABLET PO PRN (23:23)
[2020-05-07] MEDS: HEPARIN 25,000 UNITS/250ML PMX 250 ML IV PRN (02:14)
[2020-05-07 02:15] VITALS: BP 112/65
[2020-05-07 02:55] VITALS: BP 136/76
[2020-05-07 03:28] LABS: ANION GAP 2 mmol/L (5-15); CALCIUM 8.2 mg/dL (8.5-10.1); CHLORIDE 102 mmol/L (98-107)
[2020-05-07 03:31] LABS: ALANINE AMINOTRANSFERASE 42 U/L (12-78); ALKALINE PHOSPHATASE 198 U/L (45-117); BILIRUBIN,TOTAL 0.8 mg/dL (0.2-1.0); CREATININE 0.91 mg/dL (0.7-1.3); TOTAL PROTEIN 5.7 g/dL (6.4-8.2)
[2020-05-07 03:34] LABS: MEAN CORPUSCULAR HEMOGLOBIN 26.9 pg (27.5-34.5); MEAN CORPUSCULAR HGB CONC 32.2 g/dL (33.2-36.2); MEAN CORPUSCULAR VOLUME 83.6 fL (81-97); RED BLOOD COUNT 4.17 x10^6/uL (4.38-5.82); RED CELL DISTRIBUTION WIDTH 17.2 % (9.4-14.8)
[2020-05-07 03:36] LABS: INTERNATIONAL NORMALIZED RATIO 6.78 (0.93-1.1); PROTHROMBIN TIME 73.3 Seconds (9.6-11.5)
[2020-05-07 03:49] LABS: BASOPHILS # (AUTO) 0.02 x10^3/uL (0-0.1); BASOPHILS % (AUTO) 0 % (0-1); EOSINOPHILS # (AUTO) 0.21 x10^3/uL (0-0.4); EOSINOPHILS % (AUTO) 5 % (1-7); LYMPHOCYTES # (AUTO) 0.92 x10^3/uL (1-3.4); LYMPHOCYTES % (AUTO) 20 % (22-44); MD SCAN; MEAN PLATELET VOLUME 9.4 fL (7.4-10.4); MONOCYTES # (AUTO) 0.57 x10^3/uL (0.2-0.8); MONOCYTES % (AUTO) 12 % (2-9); NEUTROPHILS # (AUTO) 2.98 x10^3/uL (1.8-6.8); NEUTROPHILS % (AUTO) 64 % (42-75); PLATELET COUNT 100 x10^3/uL (130-400)
[2020-05-07] MEDS: AMPICILLIN/SULBACTAM 1,500 MG in SODIUM CHLORIDE 0.9% 50 ML IV SCH ×3 (05:58→17:20)
[2020-05-07 05:59] VITALS: BP 127/79
[2020-05-07 08:12] VITALS: BP 119/74
[2020-05-07] MEDS: GABAPENTIN 300 MG CAPSULE PO SCH ×3 (08:42→20:53)
[2020-05-07] MEDS: LISINOPRIL 5 MG TABLET PO SCH (08:42)
[2020-05-07] MEDS: CARVEDILOL 12.5 MG TABLET PO SCH ×2 (08:42→20:52)
[2020-05-07] MEDS: DULOXETINE 30 MG CAPSULE.DR PO SCH ×2 (08:42→20:52)
[2020-05-07] MEDS: FUROSEMIDE 40 MG/4 ML IV SCH ×2 (08:42→16:20)
[2020-05-07] MEDS ORDERED: INSULIN GLARGINE 100 UNITS/ML, PEN SQ-INSULIN SCH (09:00)
[2020-05-07] MEDS: INSULIN LISPRO 100 UNITS/ML, PEN SQ-INSULIN SCH ×4 (09:07→20:53)
[2020-05-07] MEDS ORDERED: MAGNESIUM SULFATE 3 GM in SODIUM CHLORIDE 0.9% 100 ML IV ONE (10:00)
[2020-05-07] MEDS ORDERED: SPIRONOLACTONE 25 MG TABLET PO SCH (10:00)
[2020-05-07] MEDS: AMIODARONE 200 MG TABLET PO SCH ×3 (11:16→20:52)
[2020-05-07] MEDS: CYCLOBENZAPRINE 10 MG TABLET PO PRN (11:16)
[2020-05-07 12:32] VITALS: BP 109/70
[2020-05-07] MEDS: OXYcodone IR 5MG TABLET PO PRN (17:36)
[2020-05-07 18:05] LABS: BASOPHILS # (AUTO) 0.03 x10^3/uL (0-0.1); BASOPHILS % (AUTO) 1 % (0-1); EOSINOPHILS # (AUTO) 0.17 x10^3/uL (0-0.4); EOSINOPHILS % (AUTO) 4 % (1-7); LYMPHOCYTES % (AUTO) 17 % (22-44); MD NO; MEAN CORPUSCULAR HEMOGLOBIN 27.2 pg (27.5-34.5); MEAN CORPUSCULAR VOLUME 82.5 fL (81-97); MEAN PLATELET VOLUME 9.7 fL (7.4-10.4); MONOCYTES # (AUTO) 0.51 x10^3/uL (0.2-0.8); MONOCYTES % (AUTO) 11 % (2-9); NEUTROPHILS # (AUTO) 3.12 x10^3/uL (1.8-6.8); NEUTROPHILS % (AUTO) 68 % (42-75); PLATELET COUNT 107 x10^3/uL (130-400); RED BLOOD COUNT 4.66 x10^6/uL (4.38-5.82); RED CELL DISTRIBUTION WIDTH 17.6 % (9.4-14.8)
[2020-05-07 18:25] VITALS: BP 107/73
[2020-05-07] MEDS: ATORVASTATIN 80 MG TABLET PO SCH (20:52)
[2020-05-07] MEDS: DIVALPROEX 500 MG TABLET.DR PO SCH (20:52)
[2020-05-08] VITALS (7 sets, daily range): BP systolic 94–108; BP diastolic 58–72
[2020-05-08] MEDS: AMPICILLIN/SULBACTAM 1,500 MG in SODIUM CHLORIDE 0.9% 50 ML IV SCH ×5 (00:23→23:57)
[2020-05-08 06:02] LABS: INTERNATIONAL NORMALIZED RATIO 3.1 (0.93-1.1); PROTHROMBIN TIME 33.2 Seconds (9.6-11.5)
[2020-05-08 06:07] LABS: ALANINE AMINOTRANSFERASE 56 U/L (12-78); ALBUMIN 2.3 g/dL (3.4-5.0); ANION GAP 5 mmol/L (5-15); CALCIUM 8.6 mg/dL (8.5-10.1); CHLORIDE 103 mmol/L (98-107)
[2020-05-08 06:10] LABS: ALKALINE PHOSPHATASE 221 U/L (45-117); BILIRUBIN,TOTAL 1.2 mg/dL (0.2-1.0); CREATININE 0.91 mg/dL (0.7-1.3); TOTAL PROTEIN 6.7 g/dL (6.4-8.2)
[2020-05-08 06:12] LABS: BASOPHILS # (AUTO) 0.02 x10^3/uL (0-0.1); BASOPHILS % (AUTO) 0 % (0-1); EOSINOPHILS # (AUTO) 0.27 x10^3/uL (0-0.4); EOSINOPHILS % (AUTO) 5 % (1-7); LYMPHOCYTES # (AUTO) 1.19 x10^3/uL (1-3.4); LYMPHOCYTES % (AUTO) 22 % (22-44); MD NO; MEAN CORPUSCULAR HEMOGLOBIN 26.8 pg (27.5-34.5); MEAN CORPUSCULAR HGB CONC 32.2 g/dL (33.2-36.2); MEAN CORPUSCULAR VOLUME 83.2 fL (81-97); MEAN PLATELET VOLUME 9.4 fL (7.4-10.4); MONOCYTES # (AUTO) 0.67 x10^3/uL (0.2-0.8); MONOCYTES % (AUTO) 12 % (2-9); NEUTROPHILS % (AUTO) 61 % (42-75); PLATELET COUNT 121 x10^3/uL (130-400); RED BLOOD COUNT 4.74 x10^6/uL (4.38-5.82); RED CELL DISTRIBUTION WIDTH 17.6 % (9.4-14.8)
[2020-05-08] MEDS: INSULIN GLARGINE 100 UNITS/ML, PEN SQ-INSULIN SCH (09:10)
[2020-05-08] MEDS: GABAPENTIN 300 MG CAPSULE PO SCH ×3 (09:10→21:00)
[2020-05-08] MEDS: INSULIN LISPRO 100 UNITS/ML, PEN SQ-INSULIN SCH ×4 (09:10→21:00)
[2020-05-08] MEDS: DULOXETINE 30 MG CAPSULE.DR PO SCH ×2 (09:11→21:00)
[2020-05-08] MEDS: CARVEDILOL 12.5 MG TABLET PO SCH ×2 (09:11→21:00)
[2020-05-08] MEDS: AMIODARONE 200 MG TABLET PO SCH ×3 (09:11→20:59)
[2020-05-08] MEDS: FUROSEMIDE 20 MG/2 ML IV SCH ×3 (09:20→21:00)
[2020-05-08] MEDS: SPIRONOLACTONE 25 MG TABLET PO SCH (13:07)
[2020-05-08] MEDS: LISINOPRIL 5 MG TABLET PO SCH (13:07)
[2020-05-08] MEDS: OXYcodone IR 5MG TABLET PO PRN (15:28)
[2020-05-08] MEDS: DIVALPROEX 500 MG TABLET.DR PO SCH (21:00)
[2020-05-08] MEDS: ATORVASTATIN 80 MG TABLET PO SCH (21:00)
[2020-05-09 01:12] VITALS: BP 118/77
[2020-05-09 03:14] VITALS: BP 103/68
[2020-05-09] MEDS: AMPICILLIN/SULBACTAM 1,500 MG in SODIUM CHLORIDE 0.9% 50 ML IV SCH (05:31)
[2020-05-09] MEDS: INSULIN LISPRO 100 UNITS/ML, PEN SQ-INSULIN SCH ×4 (07:00→23:51)
[2020-05-09 07:05] VITALS: BP 105/70
[2020-05-09 07:54] LABS: INTERNATIONAL NORMALIZED RATIO 1.77 (0.93-1.1); PROTHROMBIN TIME 18.9 Seconds (9.6-11.5)
[2020-05-09 07:57] LABS: ALBUMIN 2.5 g/dL (3.4-5.0); CHLORIDE 103 mmol/L (98-107)
[2020-05-09 08:06] LABS: ANION GAP 6 mmol/L (5-15)
[2020-05-09 08:08] LABS: ALANINE AMINOTRANSFERASE 68 U/L (12-78); ALKALINE PHOSPHATASE 246 U/L (45-117); BILIRUBIN,TOTAL 1.3 mg/dL (0.2-1.0); CALCIUM 8.5 mg/dL (8.5-10.1); CREATININE 1.11 mg/dL (0.7-1.3); TOTAL PROTEIN 7.1 g/dL (6.4-8.2)
[2020-05-09] MEDS: FUROSEMIDE 20 MG/2 ML IV SCH ×2 (08:41→23:50)
[2020-05-09] MEDS: DULOXETINE 30 MG CAPSULE.DR PO SCH ×2 (08:42→23:50)
[2020-05-09] MEDS: AMIODARONE 200 MG TABLET PO SCH ×3 (08:42→23:50)
[2020-05-09] MEDS: GABAPENTIN 300 MG CAPSULE PO SCH ×3 (08:42→23:51)
[2020-05-09] MEDS: LISINOPRIL 5 MG TABLET PO SCH (08:43)
[2020-05-09] MEDS: SPIRONOLACTONE 25 MG TABLET PO SCH (08:43)
[2020-05-09] MEDS: CARVEDILOL 12.5 MG TABLET PO SCH ×2 (08:43→23:51)
[2020-05-09] MEDS: INSULIN GLARGINE 100 UNITS/ML, PEN SQ-INSULIN SCH (08:44)
[2020-05-09] MEDS: OXYcodone IR 5MG TABLET PO PRN (08:52)
[2020-05-09] MEDS ORDERED: HEPARIN 5,000 UNITS/ML, 1ML IV ONE (10:00)
[2020-05-09 12:10] VITALS: BP 93/59
[2020-05-09] MEDS: AMOXICILLIN/CLAV 875-125MG TABLET PO SCH ×2 (12:38→23:50)
[2020-05-09] MEDS ORDERED: VERAPAMIL 2.5 MG/ML, 2ML ONE (15:52)
[2020-05-09] MEDS ORDERED: LIDOCAINE-MPF 1%, 5ML ONE (15:52)
[2020-05-09] MEDS ORDERED: TICAGRELOR 90 MG TABLET ONE (15:52)
[2020-05-09] MEDS ORDERED: HEPARIN 1,000 UNITS/ML, 10ML ONE (15:52)
[2020-05-09] MEDS ORDERED: BIVALIRUDIN 250 MG ONE (15:52)
[2020-05-09] MEDS ORDERED: FENTANYL PF 100 MCG/2ML ONE (15:52)
[2020-05-09] MEDS ORDERED: MIDAZOLAM 1 MG/ML, 5ML ONE (15:52)
[2020-05-09] MEDS: SODIUM CHLORIDE 0.9% 1,000 ML IV SCH (16:48)
[2020-05-09 22:40] VITALS: BP 90/60
[2020-05-09] MEDS: DIVALPROEX 500 MG TABLET.DR PO SCH (23:50)
[2020-05-09] MEDS: ATORVASTATIN 80 MG TABLET PO SCH (23:50)
[2020-05-10] MEDS: HEPARIN 25,000 UNITS/250ML PMX 250 ML IV PRN ×2 (00:08→17:37)
[2020-05-10] MEDS: SODIUM CHLORIDE 0.9% 1,000 ML IV SCH ×3 (00:48→16:50)
[2020-05-10] MEDS: OXYcodone IR 5MG TABLET PO PRN ×3 (00:50→14:22)
[2020-05-10 00:51] VITALS: BP 91/60
[2020-05-10 07:48] VITALS: BP 107/50
[2020-05-10 08:00] LABS: ALANINE AMINOTRANSFERASE 70 U/L (12-78); ALBUMIN 2.5 g/dL (3.4-5.0); ANION GAP 7 mmol/L (5-15); CALCIUM 8.4 mg/dL (8.5-10.1); CHLORIDE 101 mmol/L (98-107); CREATININE 1.14 mg/dL (0.7-1.3)
[2020-05-10 08:02] LABS: ALKALINE PHOSPHATASE 260 U/L (45-117); BILIRUBIN,TOTAL 1.3 mg/dL (0.2-1.0); TOTAL PROTEIN 6.9 g/dL (6.4-8.2)
[2020-05-10 08:19] LABS: INTERNATIONAL NORMALIZED RATIO 1.59 (0.93-1.1); PROTHROMBIN TIME 16.9 Seconds (9.6-11.5)
[2020-05-10] MEDS: HEPARIN 5,000 UNITS/ML, 1ML IV PRN ×2 (08:40→16:30)
[2020-05-10] MEDS: INSULIN LISPRO 100 UNITS/ML, PEN SQ-INSULIN SCH ×4 (08:44→21:25)
[2020-05-10] MEDS: AMIODARONE 200 MG TABLET PO SCH (08:45)
[2020-05-10] MEDS: DULOXETINE 30 MG CAPSULE.DR PO SCH ×2 (08:46→21:48)
[2020-05-10] MEDS: FUROSEMIDE 20 MG/2 ML IV SCH ×2 (08:46→16:54)
[2020-05-10] MEDS: GABAPENTIN 300 MG CAPSULE PO SCH (08:46)
[2020-05-10] MEDS: AMOXICILLIN/CLAV 875-125MG TABLET PO SCH ×2 (08:46→21:49)
[2020-05-10] MEDS: CARVEDILOL 12.5 MG TABLET PO SCH ×2 (08:46→21:48)
[2020-05-10 09:56] VITALS: BP 102/58
[2020-05-10] MEDS: LISINOPRIL 5 MG TABLET PO SCH (09:57)
[2020-05-10] MEDS: SPIRONOLACTONE 25 MG TABLET PO SCH (09:57)
[2020-05-10] MEDS ORDERED: WARFARIN MODERAT DOSE PROTOCOL XX SCH (12:00)
[2020-05-10 14:20] VITALS: BP 99/64
[2020-05-10] MEDS ORDERED: LIDOCAINE 1%, 10ML ONE (15:21)
[2020-05-10 16:38] VITALS: BP_SYST 82; BP_SYST 84; BP_DIAS 49; BP_DIAS 54
[2020-05-10] MEDS ORDERED: FUROSEMIDE 20 MG TABLET PO SCH (17:00)
[2020-05-10 18:00] VITALS: BP 105/72
[2020-05-10] MEDS ORDERED: WARFARIN 3 MG TABLET PO-COUM ONE (18:00)
[2020-05-10] MEDS: INSULIN GLARGINE 100 UNITS/ML, PEN SQ-INSULIN SCH (21:48)
[2020-05-10] MEDS: DIVALPROEX 500 MG TABLET.DR PO SCH (21:48)
[2020-05-10] MEDS: ATORVASTATIN 80 MG TABLET PO SCH (21:49)
[2020-05-11] MEDS: SODIUM CHLORIDE 0.9% 1,000 ML IV SCH (02:26)
[2020-05-11 02:27] VITALS: BP 90/61
[2020-05-11 05:21] LABS: BASOPHILS # (AUTO) 0.07 x10^3/uL (0-0.1); BASOPHILS % (AUTO) 1 % (0-1); EOSINOPHILS # (AUTO) 0.19 x10^3/uL (0-0.4); EOSINOPHILS % (AUTO) 3 % (1-7); LYMPHOCYTES % (AUTO) 21 % (22-44); MD NO; MEAN CORPUSCULAR HEMOGLOBIN 27.1 pg (27.5-34.5); MEAN CORPUSCULAR HGB CONC 32.8 g/dL (33.2-36.2); MEAN CORPUSCULAR VOLUME 82.7 fL (81-97); MEAN PLATELET VOLUME 9.9 fL (7.4-10.4); MONOCYTES # (AUTO) 0.66 x10^3/uL (0.2-0.8); MONOCYTES % (AUTO) 10 % (2-9); NEUTROPHILS # (AUTO) 4.25 x10^3/uL (1.8-6.8); NEUTROPHILS % (AUTO) 65 % (42-75); PLATELET COUNT 128 x10^3/uL (130-400); RED BLOOD COUNT 4.43 x10^6/uL (4.38-5.82); RED CELL DISTRIBUTION WIDTH 17.7 % (9.4-14.8)
[2020-05-11 05:30] LABS: INTERNATIONAL NORMALIZED RATIO 1.51 (0.93-1.1); PROTHROMBIN TIME 16.1 Seconds (9.6-11.5)
[2020-05-11 05:36] LABS: ALANINE AMINOTRANSFERASE 57 U/L (12-78); ALBUMIN 2.3 g/dL (3.4-5.0); ANION GAP 6 mmol/L (5-15); CALCIUM 7.9 mg/dL (8.5-10.1); CHLORIDE 98 mmol/L (98-107)
[2020-05-11 05:39] LABS: ALKALINE PHOSPHATASE 230 U/L (45-117); BILIRUBIN,TOTAL 1.2 mg/dL (0.2-1.0); CREATININE 1.25 mg/dL (0.7-1.3)
[2020-05-11] MEDS: HEPARIN 5,000 UNITS/ML, 1ML IV PRN (05:49)
[2020-05-11 06:49] VITALS: BP 100/58
[2020-05-11] MEDS: INSULIN LISPRO 100 UNITS/ML, PEN SQ-INSULIN SCH ×4 (07:00→20:34)
[2020-05-11] MEDS: FUROSEMIDE 20 MG/2 ML IV SCH ×2 (07:30→16:59)
[2020-05-11] MEDS: SPIRONOLACTONE 25 MG TABLET PO SCH (08:01)
[2020-05-11] MEDS: LISINOPRIL 5 MG TABLET PO SCH (08:01)
[2020-05-11] MEDS: CARVEDILOL 12.5 MG TABLET PO SCH ×2 (08:01→20:36)
[2020-05-11] MEDS: AMIODARONE 200 MG TABLET PO SCH (08:13)
[2020-05-11] MEDS: DULOXETINE 30 MG CAPSULE.DR PO SCH ×2 (08:14→20:36)
[2020-05-11] MEDS: AMOXICILLIN/CLAV 875-125MG TABLET PO SCH ×2 (08:14→20:36)
[2020-05-11] MEDS: OXYcodone IR 5MG TABLET PO PRN ×2 (10:35→20:37)
[2020-05-11] MEDS: HEPARIN 25,000 UNITS/250ML PMX 250 ML IV PRN (10:57)
[2020-05-11 12:59] VITALS: BP 106/72
[2020-05-11 16:58] VITALS: BP 107/70
[2020-05-11 19:59] VITALS: BP 93/62
[2020-05-11] MEDS: INSULIN GLARGINE 100 UNITS/ML, PEN SQ-INSULIN SCH (20:35)
[2020-05-11] MEDS: ATORVASTATIN 80 MG TABLET PO SCH (20:36)
[2020-05-11] MEDS: DIVALPROEX 500 MG TABLET.DR PO SCH (20:36)
[2020-05-12 00:20] VITALS: BP 104/68
[2020-05-12] MEDS: HEPARIN 25,000 UNITS/250ML PMX 250 ML IV PRN ×2 (01:35→16:53)
[2020-05-12] MEDS: CALCIUM CARBONATE 500 MG TAB.CHEW PO PRN ×3 (01:37→14:24)
[2020-05-12] MEDS: OXYcodone IR 5MG TABLET PO PRN ×2 (01:37→21:35)
[2020-05-12 05:14] LABS: INTERNATIONAL NORMALIZED RATIO 1.3 (0.93-1.1); PROTHROMBIN TIME 13.8 Seconds (9.6-11.5)
[2020-05-12] MEDS: HEPARIN 5,000 UNITS/ML, 1ML IV PRN (06:19)
[2020-05-12 06:32] VITALS: BP 107/69
[2020-05-12] MEDS: INSULIN LISPRO 100 UNITS/ML, PEN SQ-INSULIN SCH ×4 (07:00→21:00)
[2020-05-12] MEDS: FUROSEMIDE 20 MG/2 ML IV SCH ×2 (07:57→16:39)
[2020-05-12] MEDS: AMOXICILLIN/CLAV 875-125MG TABLET PO SCH ×2 (08:01→21:34)
[2020-05-12] MEDS: DULOXETINE 30 MG CAPSULE.DR PO SCH ×2 (08:01→21:34)
[2020-05-12] MEDS: CARVEDILOL 12.5 MG TABLET PO SCH ×2 (08:02→21:34)
[2020-05-12] MEDS: AMIODARONE 200 MG TABLET PO SCH (08:02)
[2020-05-12] MEDS: LISINOPRIL 5 MG TABLET PO SCH (08:59)
[2020-05-12 12:12] VITALS: BP 97/65
[2020-05-12 19:08] VITALS: BP 101/62
[2020-05-12] MEDS: ATORVASTATIN 80 MG TABLET PO SCH (21:34)
[2020-05-12] MEDS: DIVALPROEX 500 MG TABLET.DR PO SCH (21:34)
[2020-05-12 21:36] VITALS: BP 102/66
[2020-05-12] MEDS: INSULIN GLARGINE 100 UNITS/ML, PEN SQ-INSULIN SCH (23:16)
[2020-05-13 00:19] VITALS: BP 95/60
[2020-05-13 05:42] LABS: INTERNATIONAL NORMALIZED RATIO 1.16 (0.93-1.1); PROTHROMBIN TIME 12.3 Seconds (9.6-11.5)
[2020-05-13] MEDS: OXYcodone IR 5MG TABLET PO PRN ×2 (05:42→21:11)
[2020-05-13 06:40] VITALS: BP 95/67
[2020-05-13] MEDS: INSULIN LISPRO 100 UNITS/ML, PEN SQ-INSULIN SCH ×4 (07:00→21:00)
[2020-05-13] MEDS: HEPARIN 25,000 UNITS/250ML PMX 250 ML IV PRN ×2 (07:11→21:36)
[2020-05-13] MEDS: LISINOPRIL 5 MG TABLET PO SCH (08:24)
[2020-05-13] MEDS: DULOXETINE 30 MG CAPSULE.DR PO SCH ×2 (08:24→21:09)
[2020-05-13] MEDS: FUROSEMIDE 20 MG/2 ML IV SCH ×2 (08:24→16:44)
[2020-05-13] MEDS: CARVEDILOL 12.5 MG TABLET PO SCH ×2 (08:24→21:09)
[2020-05-13] MEDS: AMOXICILLIN/CLAV 875-125MG TABLET PO SCH ×2 (08:25→21:00)
[2020-05-13] MEDS: AMIODARONE 200 MG TABLET PO SCH (08:26)
[2020-05-13 12:29] VITALS: BP 93/60
[2020-05-13 18:56] VITALS: BP 96/62
[2020-05-13] MEDS: ATORVASTATIN 80 MG TABLET PO SCH (21:09)
[2020-05-13] MEDS: DIVALPROEX 500 MG TABLET.DR PO SCH (21:10)
[2020-05-13 21:12] VITALS: BP 92/57
[2020-05-13] MEDS: INSULIN GLARGINE 100 UNITS/ML, PEN SQ-INSULIN SCH (21:45)
[2020-05-14 00:29] VITALS: BP 113/65
[2020-05-14 05:07] LABS: BASOPHILS # (AUTO) 0.02 x10^3/uL (0-0.1); BASOPHILS % (AUTO) 0 % (0-1); EOSINOPHILS # (AUTO) 0.22 x10^3/uL (0-0.4); EOSINOPHILS % (AUTO) 4 % (1-7); LYMPHOCYTES # (AUTO) 1.07 x10^3/uL (1-3.4); LYMPHOCYTES % (AUTO) 18 % (22-44); MD NO; MEAN CORPUSCULAR HEMOGLOBIN 26.9 pg (27.5-34.5); MEAN CORPUSCULAR HGB CONC 32.3 g/dL (33.2-36.2); MEAN CORPUSCULAR VOLUME 83.5 fL (81-97); MEAN PLATELET VOLUME 10.1 fL (7.4-10.4); MONOCYTES # (AUTO) 0.86 x10^3/uL (0.2-0.8); MONOCYTES % (AUTO) 14 % (2-9); NEUTROPHILS % (AUTO) 64 % (42-75); PLATELET COUNT 146 x10^3/uL (130-400); RED BLOOD COUNT 4.26 x10^6/uL (4.38-5.82); RED CELL DISTRIBUTION WIDTH 17.8 % (9.4-14.8)
[2020-05-14 05:15] LABS: INTERNATIONAL NORMALIZED RATIO 1.15 (0.93-1.1); PROTHROMBIN TIME 12.2 Seconds (9.6-11.5)
[2020-05-14 05:17] LABS: ALBUMIN 2.4 g/dL (3.4-5.0); ANION GAP 6 mmol/L (5-15); CALCIUM 8.2 mg/dL (8.5-10.1); CHLORIDE 95 mmol/L (98-107)
[2020-05-14 05:21] LABS: ALANINE AMINOTRANSFERASE 50 U/L (12-78); ALKALINE PHOSPHATASE 260 U/L (45-117); BILIRUBIN,TOTAL 1.2 mg/dL (0.2-1.0); CREATININE 1.04 mg/dL (0.7-1.3); TOTAL PROTEIN 6.4 g/dL (6.4-8.2)
[2020-05-14 06:45] VITALS: BP 103/68
[2020-05-14] MEDS: INSULIN LISPRO 100 UNITS/ML, PEN SQ-INSULIN SCH ×4 (07:25→20:26)
[2020-05-14] MEDS: OXYcodone IR 5MG TABLET PO PRN ×3 (08:12→22:29)
[2020-05-14] MEDS: DULOXETINE 30 MG CAPSULE.DR PO SCH ×2 (08:12→20:23)
[2020-05-14] MEDS: AMOXICILLIN/CLAV 875-125MG TABLET PO SCH ×2 (08:12→20:23)
[2020-05-14] MEDS: CARVEDILOL 12.5 MG TABLET PO SCH ×2 (08:13→20:23)
[2020-05-14] MEDS: AMIODARONE 200 MG TABLET PO SCH (08:13)
[2020-05-14] MEDS: LISINOPRIL 5 MG TABLET PO SCH (08:13)
[2020-05-14] MEDS: FUROSEMIDE 20 MG/2 ML IV SCH ×2 (08:13→17:42)
[2020-05-14] MEDS: HEPARIN 25,000 UNITS/250ML PMX 250 ML IV PRN (12:05)
[2020-05-14 15:55] VITALS: BP 104/64
[2020-05-14 20:16] VITALS: BP 101/67
[2020-05-14] MEDS: DIVALPROEX 500 MG TABLET.DR PO SCH (20:23)
[2020-05-14] MEDS: ATORVASTATIN 80 MG TABLET PO SCH (20:23)
[2020-05-14] MEDS: ACETAMINOPHEN 325 MG TABLET PO PRN (20:25)
[2020-05-14] MEDS: INSULIN GLARGINE 100 UNITS/ML, PEN SQ-INSULIN SCH (20:26)
[2020-05-15] MEDS: CALCIUM CARBONATE 500 MG TAB.CHEW PO PRN (00:23)
[2020-05-15 00:25] LABS: ANION GAP 6 mmol/L (5-15); CALCIUM 8.6 mg/dL (8.5-10.1); CHLORIDE 95 mmol/L (98-107); CREATININE 1.13 mg/dL (0.7-1.3)
[2020-05-15 02:03] VITALS: BP 102/62
[2020-05-15] MEDS: HEPARIN 25,000 UNITS/250ML PMX 250 ML IV PRN ×2 (04:22→17:47)
[2020-05-15 06:24] LABS: BASOPHILS # (AUTO) 0.04 x10^3/uL (0-0.1); BASOPHILS % (AUTO) 1 % (0-1); EOSINOPHILS # (AUTO) 0.25 x10^3/uL (0-0.4); EOSINOPHILS % (AUTO) 4 % (1-7); LYMPHOCYTES # (AUTO) 1.11 x10^3/uL (1-3.4); LYMPHOCYTES % (AUTO) 18 % (22-44); MD NO; MEAN CORPUSCULAR HGB CONC 32.3 g/dL (33.2-36.2); MEAN CORPUSCULAR VOLUME 83.7 fL (81-97); MEAN PLATELET VOLUME 9.7 fL (7.4-10.4); MONOCYTES # (AUTO) 0.79 x10^3/uL (0.2-0.8); MONOCYTES % (AUTO) 13 % (2-9); NEUTROPHILS # (AUTO) 3.94 x10^3/uL (1.8-6.8); NEUTROPHILS % (AUTO) 64 % (42-75); PLATELET COUNT 159 x10^3/uL (130-400); RED BLOOD COUNT 4.07 x10^6/uL (4.38-5.82)
[2020-05-15 06:36] LABS: ALBUMIN 2.3 g/dL (3.4-5.0); ANION GAP 2 mmol/L (5-15); CALCIUM 8.2 mg/dL (8.5-10.1); CHLORIDE 96 mmol/L (98-107); INTERNATIONAL NORMALIZED RATIO 1.11 (0.93-1.1); PROTHROMBIN TIME 11.8 Seconds (9.6-11.5)
[2020-05-15 06:40] LABS: CREATININE 1.01 mg/dL (0.7-1.3)
[2020-05-15 06:41] LABS: ALANINE AMINOTRANSFERASE 48 U/L (12-78); ALKALINE PHOSPHATASE 244 U/L (45-117); BILIRUBIN,TOTAL 1.1 mg/dL (0.2-1.0); TOTAL PROTEIN 6.3 g/dL (6.4-8.2)
[2020-05-15] MEDS: INSULIN LISPRO 100 UNITS/ML, PEN SQ-INSULIN SCH ×4 (07:06→20:42)
[2020-05-15] MEDS: FUROSEMIDE 20 MG/2 ML IV SCH ×3 (07:39→18:08)
[2020-05-15] MEDS: HEPARIN 5,000 UNITS/ML, 1ML IV PRN (07:39)
[2020-05-15] MEDS: OXYcodone IR 5MG TABLET PO PRN ×2 (09:26→20:33)
[2020-05-15] MEDS: DULOXETINE 30 MG CAPSULE.DR PO SCH ×2 (09:26→20:33)
[2020-05-15] MEDS: CARVEDILOL 12.5 MG TABLET PO SCH ×2 (09:28→20:34)
[2020-05-15] MEDS: AMIODARONE 200 MG TABLET PO SCH (09:28)
[2020-05-15] MEDS: LISINOPRIL 5 MG TABLET PO SCH (09:28)
[2020-05-15] MEDS: AMOXICILLIN/CLAV 875-125MG TABLET PO SCH ×2 (09:29→20:34)
[2020-05-15 09:55] VITALS: BP 99/63
[2020-05-15] MEDS ORDERED: DEXTROSE 4 GM TAB.CHEW PO PRN (10:30)
[2020-05-15] MEDS ORDERED: GLUCAGON 1 MG IM PRN (10:30)
[2020-05-15] MEDS ORDERED: DEXTROSE 50%, 50ML SYRINGE IVPush PRN (10:30)
[2020-05-15 15:55] VITALS: BP 104/67
[2020-05-15 20:14] VITALS: BP 127/75
[2020-05-15] MEDS: ATORVASTATIN 80 MG TABLET PO SCH (20:33)
[2020-05-15] MEDS: DIVALPROEX 500 MG TABLET.DR PO SCH (20:33)
[2020-05-15] MEDS: SODIUM CHLORIDE FLUSH 10ML SYR IVF SCH (20:35)
[2020-05-15] MEDS: INSULIN GLARGINE 100 UNITS/ML, PEN SQ-INSULIN SCH (20:43)
[2020-05-15] MEDS ORDERED: INSULIN GLARGINE 100 UNITS/ML, PEN SQ-INSULIN SCH (21:00)
[2020-05-16 02:02] VITALS: BP 108/67
[2020-05-16] MEDS: OXYcodone IR 5MG TABLET PO PRN ×3 (03:29→20:08)
[2020-05-16 06:12] LABS: INTERNATIONAL NORMALIZED RATIO 1.12 (0.93-1.1); PROTHROMBIN TIME 11.9 Seconds (9.6-11.5)
[2020-05-16 06:14] LABS: ALBUMIN 2.3 g/dL (3.4-5.0); ANION GAP 5 mmol/L (5-15); CALCIUM 8.5 mg/dL (8.5-10.1); CHLORIDE 97 mmol/L (98-107)
[2020-05-16 06:17] LABS: ALANINE AMINOTRANSFERASE 47 U/L (12-78); ALKALINE PHOSPHATASE 230 U/L (45-117); BILIRUBIN,TOTAL 1.2 mg/dL (0.2-1.0); CREATININE 0.96 mg/dL (0.7-1.3); TOTAL PROTEIN 6.3 g/dL (6.4-8.2)
[2020-05-16] MEDS: HEPARIN 25,000 UNITS/250ML PMX 250 ML IV PRN ×2 (06:27→23:53)
[2020-05-16] MEDS: INSULIN LISPRO 100 UNITS/ML, PEN SQ-INSULIN SCH ×4 (07:14→20:25)
[2020-05-16 07:40] VITALS: BP 108/68
[2020-05-16] MEDS: FUROSEMIDE 20 MG/2 ML IV SCH ×2 (07:47→16:23)
[2020-05-16] MEDS: SODIUM CHLORIDE FLUSH 10ML SYR IVF SCH ×2 (07:47→20:06)
[2020-05-16] MEDS: LISINOPRIL 5 MG TABLET PO SCH (07:48)
[2020-05-16] MEDS: DULOXETINE 30 MG CAPSULE.DR PO SCH ×2 (07:48→20:07)
[2020-05-16] MEDS: AMIODARONE 200 MG TABLET PO SCH (07:48)
[2020-05-16] MEDS: AMOXICILLIN/CLAV 875-125MG TABLET PO SCH ×2 (07:49→20:07)
[2020-05-16] MEDS: CARVEDILOL 12.5 MG TABLET PO SCH ×2 (07:49→20:07)
[2020-05-16] MEDS ORDERED: LIDOCAINE 1%, 20ML ONE (10:42)
[2020-05-16] MEDS ORDERED: MIDAZOLAM 1 MG/ML, 5ML ONE (11:02)
[2020-05-16] MEDS ORDERED: NALOXONE 1 MG/ML, 2ML ONE (11:02)
[2020-05-16] MEDS ORDERED: FLUMAZENIL 0.1 MG/1 ML, 5ML ONE (11:02)
[2020-05-16] MEDS ORDERED: FENTANYL PF 100 MCG/2ML ONE ×2 (11:02)
[2020-05-16] MEDS ORDERED: LIDOCAINE 1%, 10ML ONE (11:30)
[2020-05-16 13:15] VITALS: BP 100/64
[2020-05-16 20:05] VITALS: BP 99/64
[2020-05-16] MEDS: ATORVASTATIN 80 MG TABLET PO SCH (20:07)
[2020-05-16] MEDS: DIVALPROEX 500 MG TABLET.DR PO SCH (20:07)
[2020-05-16] MEDS: INSULIN GLARGINE 100 UNITS/ML, PEN SQ-INSULIN SCH (20:26)
[2020-05-17 02:04] VITALS: BP 96/62
[2020-05-17] MEDS: OXYcodone IR 5MG TABLET PO PRN ×4 (02:04→16:52)
[2020-05-17 06:07] LABS: INTERNATIONAL NORMALIZED RATIO 1.11 (0.93-1.1); PROTHROMBIN TIME 11.8 Seconds (9.6-11.5)
[2020-05-17] MEDS: INSULIN LISPRO 100 UNITS/ML, PEN SQ-INSULIN SCH ×3 (08:11→16:51)
[2020-05-17 08:15] VITALS: BP 102/66
[2020-05-17] MEDS: DULOXETINE 30 MG CAPSULE.DR PO SCH (08:18)
[2020-05-17] MEDS: CARVEDILOL 12.5 MG TABLET PO SCH (08:18)
[2020-05-17] MEDS: FUROSEMIDE 20 MG/2 ML IV SCH (08:18)
[2020-05-17] MEDS: LISINOPRIL 5 MG TABLET PO SCH (08:19)
[2020-05-17] MEDS: AMOXICILLIN/CLAV 875-125MG TABLET PO SCH (08:20)
[2020-05-17] MEDS: SODIUM CHLORIDE FLUSH 10ML SYR IVF SCH (08:20)
[2020-05-17] MEDS: AMIODARONE 200 MG TABLET PO SCH (08:20)
[2020-05-17] MEDS ORDERED: LISINOPRIL 5 MG TABLET PO SCH (09:00)
[2020-05-17] MEDS ORDERED: OXYC5TAB3 PO (09:30)
[2020-05-17] MEDS ORDERED: INSU100I13 SQ-INSULIN (09:30)
[2020-05-17] MEDS ORDERED: LISI5TAB7 PO (09:30)
[2020-05-17] MEDS ORDERED: AMIO200T42 PO (09:30)
[2020-05-17] MEDS ORDERED: CYCL-259 PO (09:30)
[2020-05-17] MEDS ORDERED: CARV12.52 PO (09:30)
[2020-05-17] MEDS ORDERED: INSU100I11 SQ-INSULIN (09:30)
[2020-05-17] MEDS ORDERED: FURO20TA3 PO (09:30)
[2020-05-17] MEDS ORDERED: WARFARIN MODERAT DOSE PROTOCOL XX SCH (12:00)
[2020-05-17] MEDS: HEPARIN 25,000 UNITS/250ML PMX 250 ML IV PRN (14:11)
[2020-05-17 14:23] VITALS: BP 97/60
[2020-05-17] MEDS ORDERED: FUROSEMIDE 20 MG TABLET PO SCH (17:00)
[2020-05-17] MEDS ORDERED: WARFARIN 7.5 MG TABLET PO-COUM ONE (18:00)
[2020-05-17] MEDS ORDERED: INSULIN GLARGINE 100 UNITS/ML, PEN SQ-INSULIN SCH (21:00)
== END 2020-05-17 20:40 | DRG 564 ==
LOC: ED 02:51 → EDIP 04:27 → 3N 06:09 → 5SO 05-04 15:06
PROVIDERS: ADMIT Hospitalist; ATTEND Internal Medicine
PROC: 0W993ZZ Drainage of Right Pleural Cavity, Percutaneous Approach (ICD-10-PCS; 2020-05-04)
PROC: 4A023N7 Measurement of Cardiac Sampling and Pressure, Left Heart, Percutaneous Approach (ICD-10-PCS; principal; 2020-05-09)
PROC: B2151ZZ Fluoroscopy of Left Heart using Low Osmolar Contrast (ICD-10-PCS; 2020-05-09)
PROC: B2111ZZ Fluoroscopy of Multiple Coronary Arteries using Low Osmolar Contrast (ICD-10-PCS; 2020-05-09)
PROC: 0W993ZZ Drainage of Right Pleural Cavity, Percutaneous Approach (ICD-10-PCS; 2020-05-10)
PROC: 0W9B30Z Drainage of Left Pleural Cavity with Drainage Device, Percutaneous Approach (ICD-10-PCS; 2020-05-16)
DX: T87.43 Infection of amputation stump, right lower extremity (principal); I50.43 Acute on chronic combined systolic (congestive) and diastolic (congestive) heart failure; L03.115 Cellulitis of right lower limb; I47.2 Ventricular tachycardia; E11.52 Type 2 diabetes mellitus with diabetic peripheral angiopathy with gangrene; R04.2 Hemoptysis; I42.8 Other cardiomyopathies; J98.11 Atelectasis; J90 Pleural effusion, not elsewhere classified; Z51.5 Encounter for palliative care; E11.42 Type 2 diabetes mellitus with diabetic polyneuropathy; B18.2 Chronic viral hepatitis C; E78.5 Hyperlipidemia, unspecified; I11.0 Hypertensive heart disease with heart failure; E66.9 Obesity, unspecified; E11.65 Type 2 diabetes mellitus with hyperglycemia; F32.9 Major depressive disorder, single episode, unspecified; E11.51 Type 2 diabetes mellitus with diabetic peripheral angiopathy without gangrene; I48.0 Paroxysmal atrial fibrillation; I25.10 Atherosclerotic heart disease of native coronary artery without angina pectoris; M79.89 Other specified soft tissue disorders; E83.42 Hypomagnesemia; E88.81 Metabolic syndrome and other insulin resistance; G89.4 Chronic pain syndrome; I08.0 Rheumatic disorders of both mitral and aortic valves; I25.5 Ischemic cardiomyopathy; K74.60 Unspecified cirrhosis of liver; R79.1 Abnormal coagulation profile; I95.9 Hypotension, unspecified; Z53.9 Procedure and treatment not carried out, unspecified reason; Z78.9 Other specified health status; Z79.01 Long term (current) use of anticoagulants; Z79.4 Long term (current) use of insulin; Y83.5 Amputation of limb(s) as the cause of abnormal reaction of the patient, or of later complication, without mention of misadventure at the time of the procedure; Z89.511 Acquired absence of right leg below knee; Z86.711 Personal history of pulmonary embolism; Z86.718 Personal history of other venous thrombosis and embolism; Z89.611 Acquired absence of right leg above knee; Z89.612 Acquired absence of left leg above knee; Z68.31 Body mass index [BMI] 31.0-31.9, adult; Z87.891 Personal history of nicotine dependence
CPT/HCPCS: 32550; 32555; 36415; 36600; 71045; 71250; 80048; 80053; 80069; 80202; 82042; 82150; 82803; 82962; 83036; 83605; 83615; 83735; 83880; 84439; 84443; 84484; 85025; 85520; 85610; 85651; 85730; 87040; 87070; 87205; 89051; 93005; 93306; 93356; 93458; 96361; 96365; 96375; 99156; 99157; 99285; C1769; C1894; G0378; J0295; J0583; J1644; J1885; J1940; J2250; J2405; J2543; J3010; J3370; J3475; C1729; J1815; J2270; J2310; J7030; J7040; J7050; Q9967

== ENCOUNTER 2020-09-04 15:25 | Emergency (ER) | payer MEDICARE, MEDICAID ==
[~2020-09-04] VITALS: Ht 185.4 cm; Wt 100.0 kg
[~2020-09-04 15:25] MED LIST changes: +AMIO200T42 PO; +CARV12.52 PO; +CYCL-259 PO; +INSU100I11 SQ-INSULIN; +INSU100I13 SQ-INSULIN; +OXYC5TAB3 PO
[2020-09-04] MEDS ORDERED: SODIUM CHLORIDE FLUSH 10ML SYR IVF ONE (16:00)
[2020-09-04] MEDS ORDERED: MORPHINE SULFATE 4 MG/ML, 1ML IVPush PRN (16:00)
[2020-09-04] MEDS ORDERED: ONDANSETRON 2MG/ML, 2ML IVPush ONE (16:00)
[2020-09-04 16:05] LABS: BASOPHILS % (AUTO) 2 % (0-1); EOSINOPHILS % (AUTO) 3 % (1-7); LYMPHOCYTES % (AUTO) 21 % (22-44); MEAN CORPUSCULAR HEMOGLOBIN 26.2 pg (27.5-34.5); MEAN CORPUSCULAR HGB CONC 32.7 g/dL (33.2-36.2); MEAN PLATELET VOLUME 9.3 fL (7.4-10.4); MONOCYTES % (AUTO) 8 % (2-9); NEUTROPHILS % (AUTO) 66 % (42-75); PLATELET COUNT 115 x10^3/uL (130-400); RED BLOOD COUNT 5.57 x10^6/uL (4.38-5.82)
[2020-09-04 16:15] LABS: ALANINE AMINOTRANSFERASE 62 U/L (12-78); ALBUMIN 3.2 g/dL (3.4-5.0); ANION GAP 6 mmol/L (5-15); CHLORIDE 101 mmol/L (98-107); CREATININE 1.05 mg/dL (0.7-1.3)
[2020-09-04 16:18] LABS: ALKALINE PHOSPHATASE 253 U/L (45-117); BILIRUBIN,TOTAL 1.3 mg/dL (0.2-1.0); TOTAL PROTEIN 6.9 g/dL (6.4-8.2)
[2020-09-04] MEDS ORDERED: MORPHINE SULFATE 4 MG/ML, 1ML ONE (16:29)
[2020-09-04] MEDS ORDERED: ONDANSETRON 2MG/ML, 2ML ONE (16:29)
[2020-09-04 16:36] LABS: MD SCAN
--- NOTE | 2020-09-04 16:42 | NUR ---
MEDICATED PER ORDER, PT REPORTS FEELING RAE AND SHOULDER PAIN FROM FALL. NEURO APPROP AT THIS TIME, BED LOW, CALL SOLOMON IN REACH. VSS WILL CONTINUE TO MONITOR.
[2020-09-04 17:11] VITALS: BP 134/88
== END 2020-09-04 17:20 | disposition home or self-care (01) ==
LOC: ED 16:27
DX: S00.01XA Abrasion of scalp, initial encounter (principal); M25.512 Pain in left shoulder; E11.9 Type 2 diabetes mellitus without complications; I11.0 Hypertensive heart disease with heart failure; I48.91 Unspecified atrial fibrillation; Z79.01 Long term (current) use of anticoagulants; W18.30XA Fall on same level, unspecified, initial encounter; Y93.89 Activity, other specified; Y92.009 Unspecified place in unspecified non-institutional (private) residence as the place of occurrence of the external cause; Y99.8 Other external cause status
CPT/HCPCS: 36415; 70450; 73030; 80053; 85025; 96374; 96375; 99285; J2270; J2405

== ENCOUNTER 2020-12-16 18:51 | Emergency (ER) | payer MEDICARE, MEDICAID ==
[~2020-12-16 18:51] MED LIST changes: -OXYC5TAB3 PO; +OXYC5TAB98 PO
--- NOTE | 2020-12-16 18:55 | NUR ---
PT ROMAN LICEA FROM [facility] & [facility] FOR LUQ ABD PAIN X SEVERAL WEEKS. SEEN AT [facility] LAST MONTH FOR SAME COMPLAINT. PT STATES PAIN WORSE TODAY, WITH N/V AT LUNCH TIME. PT JAUNDICED & ASCITIC. REPORTS HX HEP C BUT STATES HE'S NEVER BEEN JAUNDICED BEFORE. PER RECORDS FROM [facility], PT HAD CVA WITH R SIDED DEFICITS IN 2019. PT'S RUE IS FLACCID; RLE WEAKNESS. PT HAS R BKA & L AKA. EXTENSIVE MEDICAL HX. PT WAS MEDICATED WITH 100MCG FENTANYL & 4MG ZOFRAN EN ROUTE. ARRIVES TO ED A&OX4, CALM. ON 3.5L O2 AT BASELINE.
--- NOTE | 2020-12-16 19:25 | NUR ---
ERP AT NOW.
[2020-12-16] MEDS ORDERED: OMNIPAQUE 350 MG/ML, 100ML BOTTLE ONE (19:35)
[2020-12-16] MEDS ORDERED: SODIUM CHLORIDE FLUSH 10ML SYR IVF ONE (20:00)
--- NOTE | 2020-12-16 20:16 | NUR ---
PT REPOSITIONED WITH PILLOW UNDER R SIDE FOR COMFORT. PT HAS PRESSURE ULCER TO SACRUM.
--- NOTE | 2020-12-16 20:43 | NUR ---
INSTRUCTED PT ON CLEAN CATCH URINE SAMPLE. PT VOIDED IN URINAL WITHOUT DIFFICULTY.
[2020-12-16 20:46] LABS: MEAN CORPUSCULAR HEMOGLOBIN 29.1 pg (27.5-34.5); MEAN CORPUSCULAR HGB CONC 32.8 g/dL (33.2-36.2); MEAN PLATELET VOLUME 8.4 fL (7.4-10.4); PLATELET COUNT 177 x10^3/uL (130-400); RED BLOOD COUNT 3.89 x10^6/uL (4.38-5.82); RED CELL DISTRIBUTION WIDTH 21.4 % (9.4-14.8)
[2020-12-16 20:56] LABS: ALBUMIN 2.3 g/dL (3.4-5.0); ANION GAP 4 mmol/L (5-15); CALCIUM 8.8 mg/dL (8.5-10.1); CHLORIDE 94 mmol/L (98-107)
[2020-12-16 21:01] LABS: ALANINE AMINOTRANSFERASE 34 U/L (12-78); ALKALINE PHOSPHATASE 417 U/L (45-117); BILIRUBIN,TOTAL 4.5 mg/dL (0.2-1.0); CREATININE 0.77 mg/dL (0.7-1.3); TOTAL PROTEIN 7.8 g/dL (6.4-8.2)
--- NOTE | 2020-12-16 21:20 | NUR ---
MONIE RAYMOND CAME TO GET PT FOR CT BUT PT REQUESTING PAIN MEDS BEFORE SCAN. ERP NOTIFIED, WANTS TO HOLD OFF ON PAIN MEDS UNTIL DIAGNOSIS IS MADE. UPDATED PT, HE VERBALIZES UNDERSTANDING. SPECIAL POLICE TO COME BACK.
[2020-12-16 21:23] LABS: MICROSCOPIC INDICATED
--- NOTE | 2020-12-16 21:23 | NUR ---
PT TO CT VIA [facility] NOW.
[2020-12-16 21:49] LABS: MD YES
[2020-12-16 21:54] LABS: EOS#(MANUAL) 0.06 x10^3/uL (0.0-0.4); EOS% (MANUAL) 1 % (1-7); LYMPH#(MANUAL) 0.77 x10^3/uL (1-3.4); LYMPHS% (MANUAL) 12 % (22-44); MONOS% (MANUAL) 11 % (2-9); REACTIVE LYMPHS # (MANUAL) 0.13 x10^3/uL (0-0); REACTIVE LYMPHS % (MANUAL) 2 % (0-0); SEG#(MANUAL) 4.61 x10^3/uL (1.8-6.8); SEGS% (MANUAL) 72 % (42-75)
[2020-12-16 21:55] LABS: ANISOCYTOSIS 1+; OTHER CELLS # (MANUAL) 0.13 x10^3/uL (0-0); OTHER CELLS % (MANUAL) 2 % (0-0); OVALOCYTES 1+
[2020-12-16 21:56] LABS: <PLATELET ESTIMATE> ADEQUATE; <PLT MORPHOLOGY> NORMAL PLT MORPH; MICROCYTOSIS 1+; TARGET CELLS 1+
[2020-12-16 21:58] VITALS: BP 101/61
[2020-12-16] MEDS ORDERED: HYDROcodone/APAP 5/325 TABLET PO ONE (22:00)
[2020-12-16] MEDS ORDERED: HYDROcodone/APAP 5/325 TABLET ONE (22:06)
--- NOTE | 2020-12-16 22:13 | NUR ---
ERP WAS BACK IN TO REVIEW POC WITH PT. PT WILL BE MEDICATED FOR ABD PAIN AND TRANSPORTED BACK TO [facility]. REPORTED TO MADAN CASTRO.
--- NOTE | 2020-12-16 22:16 | NUR ---
REPORT FROM MATTHEW WEIR.
--- NOTE | 2020-12-16 22:28 | NUR ---
REPORT CALLED TO PT FACILITY OF RESIDENCE. PT PROVIDED WITH FURTHER EDUCATION, AND REPOSITIONED ON RIGHT SIDE WITH PILLOW PROP. DENIES ANY FURTHER NEEDS OR CONCERNS, CALL LIGHT IN REACH.
[2020-12-16 22:52] LABS: INTERNATIONAL NORMALIZED RATIO 1.1 (0.93-1.1); PROTHROMBIN TIME 11.7 Seconds (9.6-11.5)
== END 2020-12-16 23:05 | disposition home or self-care (01) ==
LOC: ED 20:29
DX: S30.1XXA Contusion of abdominal wall, initial encounter (principal); R00.0 Tachycardia, unspecified; I10 Essential (primary) hypertension; E11.9 Type 2 diabetes mellitus without complications; E78.00 Pure hypercholesterolemia, unspecified; Z86.73 Personal history of transient ischemic attack (TIA), and cerebral infarction without residual deficits; Z87.891 Personal history of nicotine dependence; Z88.8 Allergy status to other drugs, medicaments and biological substances; Z89.619 Acquired absence of unspecified leg above knee; Z89.519 Acquired absence of unspecified leg below knee; X58.XXXA Exposure to other specified factors, initial encounter; Y93.89 Activity, other specified; Y92.89 Other specified places as the place of occurrence of the external cause; Y99.8 Other external cause status
CPT/HCPCS: 36415; 74177; 80053; 81001; 83690; 85025; 85610; 85730; 87086; 93005; 99285; Q9967; 87077